=== PATIENT | male | born 1935 | race Caucasian/White ===

== ENCOUNTER 2023-08-17 17:58 | Inpatient (IN) | payer MEDICARE, SELFPAY ==
[2023-08-17] VITALS (37 sets, daily range): BP systolic 86–124; BP diastolic 47–63; PULSE 67–109; RESP 5–41; TEMP 36.4–36.7; O2SAT 93–98; BMI 22.2; BMI 24.1
--- NOTE | 2023-08-17 18:09 | ECG_ITS ---
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
--- NOTE | 2023-08-17 18:24 | ED.GENADUL1 ---
Documented by User: Erica Ryan MD 08/17/23 19:08 HPI - General Adult General Chief complaint: Recheck/Abnormal Lab/Rx Stated complaint: abnormal labs Time Seen by Provider: 08/17/23 18:09 Source: patient Mode of arrival: ambulance Limitations: other Limitations comment: patient very hard of hearing History of Present Illness HPI narrative: The patient presented to us from a longterm facility after his regular blood work-up shows a hemoglobin of 6, the patient himself is denying any complaints and is hard of hearing The patient have no acute distress or complaints Related Data Home Medications Medication Instructions Recorded Confirmed albuterol sulfate 90 mcg/actuation 1 inh inhalation DAILY PRN 08/17/23 08/17/23 aerosol inhaler shortness of breath or wheezing allopurinol 300 mg tablet 300 mg PO DAILY 08/17/23 08/17/23 ammonium lactate 12 % topical cream 1 applic topical DAILY PRN dry skin 08/17/23 08/17/23 apixaban 5 mg tablet (Eliquis) 5 mg PO BID 08/17/23 08/17/23 bisacodyl 10 mg rectal suppository 10 mg WI DAILY PRN constipation 08/17/23 08/17/23 calcium citrate 1,000 mg tablet 1,000 mg PO DAILY 08/17/23 08/17/23 digoxin 125 mcg (0.125 mg) tablet 0.125 mg PO DAILY 08/17/23 08/17/23 doxycycline hyclate 100 mg capsule 100 mg PO DAILY 08/17/23 08/17/23 ferrous sulfate 325 mg (65 mg 325 mg PO DAILY 08/17/23 08/17/23 iron) tablet (Feosol) furosemide 20 mg tablet 20 mg PO BID 08/17/23 08/17/23 guaifenesin 600 mg tablet, 600 mg PO BID PRN cough 08/17/23 08/17/23 extended release 12 hr metolazone 5 mg tablet 5 mg PO DAILY 08/17/23 08/17/23 metoprolol tartrate 50 mg tablet 50 mg PO BID 08/17/23 08/17/23 omeprazole 20 mg capsule,delayed 20 mg PO BID 08/17/23 08/17/23 release potassium gluconate 595 mg (99 mg) 595 mg PO DAILY 08/17/23 08/17/23 tablet tramadol 50 mg tablet 50 mg PO BID 08/17/23 08/17/23 Allergies Allergy/AdvReac Type Severity Reaction Status Date / Time venom-honey bee Allergy Severe Hives Verified 08/17/23 18:12 diazepam [From Valium] Allergy Unknown Verified 08/17/23 18:12 influenza virus vaccine qs Allergy Unknown Verified 08/17/23 18:12 [id number] (36 mos, up) [From Fluarix Quad] naproxen [From Naprosyn] Allergy Unknown Verified 08/17/23 18:12 Review of Systems ROS Status of ROS 10 or more systems reviewed and unremarkable except as noted in history and below [facility] Medical History (Updated 08/18/23 @ 00:08 by Heather June RN) Atrial fib/flutter, transient Cardiomegaly ?I51.7 - Cardiomegaly (ICD-10) CHF (congestive heart failure) ?I50.9 - Heart failure, unspecified (ICD-10) Hypertension ?I10 - Essential (primary) hypertension (ICD-10) Pacemaker ?Z95.0 - Presence of cardiac pacemaker (ICD-10) Exam Narrative Exam Narrative: Nurses notes and vital signs reviewed and patient is not hypoxic. General: Well-appearing and in no apparent distress. Hard of hearing Skin: Warm, dry, no pallor noted. No rash. Head: Normocephalic, atraumatic. Neck: Supple, non-tender. Eye: Pupils are equal, round and EOMI. No scleral icterus. Ears, Nose, Mouth, and Throat: TM are clear, bilateral nostril shows dry blood no bleeding at the posterior aspect of the pharynx no active bleeding, oral mucosa is moist, no posterior oropharynx erythema, uvula is mid-line Cardiovascular: Regular Rate and Rhythm without murmur, gallop or rub. Respiratory: No accessory muscle use or respiratory distress. Lungs are clear to auscultation, no wheezing, rales or rhonchi Chest Wall: no tenderness Back: No midline thoracic or lumbar vertebral tenderness. No CVA tenderness Musculoskeletal: normal ROM, no calf or popliteal tenderness bilateral chronic edema extending up to the knee with chronic skin changes and dry skin GI: Abdomen is soft, non-distended. Normal bowel sounds. No masses appreciated. Rectal exam showed that the patient have no hemorrhoids occult blood test was obtained no obvious bleeding No tenderness to palpation. No rebound, guarding, or rigidity noted. Neurological: A&O x4. No cranial nerve dysfunction observed. No truncal ataxia. Moves all extremities. Sensation intact. Psychiatric: Cooperative and interactive. Normal mood and affect. Constitutional Vital Signs, click to edit/add: Last Vital Signs Temp 98.0 F 08/17/23 23:16 Pulse 69 08/17/23 23:16 Resp 16 08/17/23 23:16 BP 112/59 08/17/23 23:16 Pulse Ox 93 L 08/17/23 23:29 O2 Del Method Room Air 08/17/23 23:29 Course Vital Signs Vital signs: Vital Signs Temperature 97.6 F 08/17/23 18:05 Pulse Rate 84 08/17/23 18:05 Respiratory Rate 24 08/17/23 18:05 Blood Pressure 104/57 08/17/23 18:05 Pulse Oximetry 98 08/17/23 18:05 Oxygen Delivery Method Room Air 08/17/23 18:05 Temperature 98.0 F 08/17/23 23:16 Pulse Rate 69 08/17/23 23:16 Respiratory Rate 16 08/17/23 23:16 Blood Pressure 112/59 08/17/23 23:16 Pulse Oximetry 93 L 08/17/23 23:29 Oxygen Delivery Method Room Air 08/17/23 23:29 Medical Decision Making [facility] Narrative Medical decision making narrative: The patient EKG showing A-fib with a heart rate of [address] elevation or any concern for acute coronary syndrome at the moment The patient is not a good historian and he is hard of hearing it was noted that he is supposed to be in anticoagulant because of his history of A-fib although there is no Eliquis on his medication The patient also had occult blood done and awaiting the result also the rest of the chemistry type and screen The patient hemoglobin is 6.5 here and the chemistry showing elevated BUN with the possibility of the patient having some upper GI bleed. The patient does take Eliquis at [facility] in [place] new list from [facility] pt code status is DNR CCA care transferred to Dr Buchanan Lab Data Labs: Lab Results 08/17/23 08/17/23 Range/Units 18:22 18:33 WBC 6.3 (4.0-11.0) 10^3/uL RBC 2.40 L (4.70-6.10) 10^6/uL Hgb 6.5 L* (14.0-18.0) g/dL Hct 22.8 L* (42.0-54.0) % MCV 95.0 H (80.0-94.0) fL MCH 27.1 (25.9-34.0) pg MCHC 28.5 L (29.9-35.2) g/dL RDW 17.2 H (11.0-15.0) % Plt Count 258 (150-450) 10^3/uL MPV 8.2 L (9.5-13.5) fL Neut % (Auto) 70.3 (43.0-75.0) % Lymph % (Auto) 17.4 L (20.5-60.0) % [place] % (Auto) 10.9 (1.7-12.0) % Eos % (Auto) 0.8 L (0.9-7.0) % Baso % (Auto) 0.3 (0.2-2.0) % Neut # (Auto) 4.4 (1.4-6.5) 10^3/uL Lymph # (Auto) 1.1 L (1.2-3.8) 10^3/uL [place] # (Auto) 0.7 (0.3-0.8) 10^3/uL Eos # (Auto) 0.1 (0.0-0.7) 10^3/uL Baso # (Auto) 0.0 (0.0-0.1) 10^3/uL Abs Immat Gran (auto) 0.02 (0.00-0.03) 10^3/uL Imm/Tot Granulo (auto) 0.3 (0.0-0.5) % PT 11.7 H (9.0-11.6) sec INR 1.11 Sodium 130 L (136-145) mmol/L Potassium 4.6 (3.5-5.1) mmol/L Chloride 91 L (98-107) mmol/L Carbon Dioxide 38.9 H (21.0-32.0) mmol/L Anion Gap 4.7 BUN 35.0 H (7.0-18.0) mg/dL Creatinine 0.90 (0.70-1.30) mg/dL Est GFR ( Amer) >60 (>=60) Est GFR (Non-Af Amer) >60 (>=60) BUN/Creatinine Ratio 38.9 Glucose 103 (74-106) mg/dL Calcium 8.6 (8.5-10.1) mg/dL Total Bilirubin 0.2 (0.2-1.0) mg/dL AST 19 (15-37) U/L ALT 18 (16-63) U/L Alkaline Phosphatase 91 (46-116) U/L Troponin I High Sens 16.8 (4.0-76.1) pg/mL Total Protein 6.3 L (6.4-8.2) g/dL Albumin 2.3 L (3.4-5.0) g/dL Globulin 4.0 g/dL Albumin/Globulin Ratio 0.6 Stool Occult Blood Positive A Digoxin 1.5 (0.9-2.0) ng/mL Blood Type B Negative Antibody Screen Negative Discharge Plan Discharge Chief Complaint: Recheck/Abnormal Lab/Rx Clinical Impression: Acute anemia, GI bleed, Constipation Patient Disposition: Admitted as Observation Documented by User: Alexx Buchanan MD 08/17/23 21:58 HPI - General Adult General Chief complaint: Recheck/Abnormal Lab/Rx Stated complaint: abnormal labs Time Seen by Provider: 08/17/23 18:09 Related Data Home Medications Medication Instructions Recorded Confirmed albuterol sulfate 90 mcg/actuation 1 inh inhalation DAILY PRN 08/17/23 08/17/23 aerosol inhaler shortness of breath or wheezing allopurinol 300 mg tablet 300 mg PO DAILY 08/17/23 08/17/23 ammonium lactate 12 % topical cream 1 applic topical DAILY PRN dry skin 08/17/23 08/17/23 apixaban 5 mg tablet (Eliquis) 5 mg PO BID 08/17/23 08/17/23 bisacodyl 10 mg rectal suppository 10 mg WI DAILY PRN constipation 08/17/23 08/17/23 calcium citrate 1,000 mg tablet 1,000 mg PO DAILY 08/17/23 08/17/23 digoxin 125 mcg (0.125 mg) tablet 0.125 mg PO DAILY 08/17/23 08/17/23 doxycycline hyclate 100 mg capsule 100 mg PO DAILY 08/17/23 08/17/23 ferrous sulfate 325 mg (65 mg 325 mg PO DAILY 08/17/23 08/17/23 iron) tablet (Feosol) furosemide 20 mg tablet 20 mg PO BID 08/17/23 08/17/23 guaifenesin 600 mg tablet, 600 mg PO BID PRN cough 08/17/23 08/17/23 extended release 12 hr metolazone 5 mg tablet 5 mg PO DAILY 08/17/23 08/17/23 metoprolol tartrate 50 mg tablet 50 mg PO BID 08/17/23 08/17/23 omeprazole 20 mg capsule,delayed 20 mg PO BID 08/17/23 08/17/23 release potassium gluconate 595 mg (99 mg) 595 mg PO DAILY 08/17/23 08/17/23 tablet tramadol 50 mg tablet 50 mg PO BID 08/17/23 08/17/23 Allergies Allergy/AdvReac Type Severity Reaction Status Date / Time venom-honey bee Allergy Severe Hives Verified 08/17/23 18:12 diazepam [From Valium] Allergy Unknown Verified 08/17/23 18:12 influenza virus vaccine qs Allergy Unknown Verified 08/17/23 18:12 [id number] (36 mos, up) [From Fluarix Quad] naproxen [From Naprosyn] Allergy Unknown Verified 08/17/23 18:12 [facility] Medical History (Updated 08/18/23 @ 00:08 by Heather June RN) Atrial fib/flutter, transient Cardiomegaly ?I51.7 - Cardiomegaly (ICD-10) CHF (congestive heart failure) ?I50.9 - Heart failure, unspecified (ICD-10) Hypertension ?I10 - Essential (primary) hypertension (ICD-10) Pacemaker ?Z95.0 - Presence of cardiac pacemaker (ICD-10) Exam Constitutional Vital Signs, click to edit/add: Last Vital Signs Temp 98.0 F 08/17/23 23:16 Pulse 69 08/17/23 23:16 Resp 16 08/17/23 23:16 BP 112/59 08/17/23 23:16 Pulse Ox 93 L 08/17/23 23:29 O2 Del Method Room Air 08/17/23 23:29 Course Vital Signs Vital signs: Vital Signs Temperature 97.6 F 08/17/23 18:05 Pulse Rate 84 08/17/23 18:05 Respiratory Rate 24 08/17/23 18:05 Blood Pressure 104/57 08/17/23 18:05 Pulse Oximetry 98 08/17/23 18:05 Oxygen Delivery Method Room Air 08/17/23 18:05 Temperature 98.0 F 08/17/23 23:16 Pulse Rate 69 08/17/23 23:16 Respiratory Rate 16 08/17/23 23:16 Blood Pressure 112/59 08/17/23 23:16 Pulse Oximetry 93 L 08/17/23 23:29 Oxygen Delivery Method Room Air 08/17/23 23:29 Medical Decision Making MDM Narrative Medical decision making narrative: The patient EKG showing A-fib with a heart rate of [address] elevation or any concern for acute coronary syndrome at the moment The patient is not a good historian and he is hard of hearing it was noted that he is supposed to be in anticoagulant because of his history of A-fib although there is no Eliquis on his medication The patient also had occult blood done and awaiting the result also the rest of the chemistry type and screen The patient hemoglobin is 6.5 here and the chemistry showing elevated BUN with the possibility of the patient having some upper GI bleed. The patient does take Eliquis at [facility] in [facility] from [facility] pt code status is DNR CCA care transferred to Dr Buchanan care transferred at change of shift. Discussed with butcher scullion surgeon Dr Lopez who is agreeable to patient admission by Hospitalist service. Discussed with Dr Sister gordon. Because patient was complaining of pain he requested CT abdomen. CT returned with findings of constipation. Patient admitted to hospitalist service Lab Data Labs: Lab Results 08/17/23 08/17/23 Range/Units 18:22 18:33 WBC 6.3 (4.0-11.0) 10^3/uL RBC 2.40 L (4.70-6.10) 10^6/uL Hgb 6.5 L* (14.0-18.0) g/dL Hct 22.8 L* (42.0-54.0) % MCV 95.0 H (80.0-94.0) fL MCH 27.1 (25.9-34.0) pg MCHC 28.5 L (29.9-35.2) g/dL RDW 17.2 H (11.0-15.0) % Plt Count 258 (150-450) 10^3/uL MPV 8.2 L (9.5-13.5) fL Neut % (Auto) 70.3 (43.0-75.0) % Lymph % (Auto) 17.4 L (20.5-60.0) % [place] % (Auto) 10.9 (1.7-12.0) % Eos % (Auto) 0.8 L (0.9-7.0) % Baso % (Auto) 0.3 (0.2-2.0) % Neut # (Auto) 4.4 (1.4-6.5) 10^3/uL Lymph # (Auto) 1.1 L (1.2-3.8) 10^3/uL [place] # (Auto) 0.7 (0.3-0.8) 10^3/uL Eos # (Auto) 0.1 (0.0-0.7) 10^3/uL Baso # (Auto) 0.0 (0.0-0.1) 10^3/uL Abs Immat Gran (auto) 0.02 (0.00-0.03) 10^3/uL Imm/Tot Granulo (auto) 0.3 (0.0-0.5) % PT 11.7 H (9.0-11.6) sec INR 1.11 Sodium 130 L (136-145) mmol/L Potassium 4.6 (3.5-5.1) mmol/L Chloride 91 L (98-107) mmol/L Carbon Dioxide 38.9 H (21.0-32.0) mmol/L Anion Gap 4.7 BUN 35.0 H (7.0-18.0) mg/dL Creatinine 0.90 (0.70-1.30) mg/dL Est GFR ( Amer) >60 (>=60) Est GFR (Non-Af Amer) >60 (>=60) BUN/Creatinine Ratio 38.9 Glucose 103 (74-106) mg/dL Calcium 8.6 (8.5-10.1) mg/dL Total Bilirubin 0.2 (0.2-1.0) mg/dL AST 19 (15-37) U/L ALT 18 (16-63) U/L Alkaline Phosphatase 91 (46-116) U/L Troponin I High Sens 16.8 (4.0-76.1) pg/mL Total Protein 6.3 L (6.4-8.2) g/dL Albumin 2.3 L (3.4-5.0) g/dL Globulin 4.0 g/dL Albumin/Globulin Ratio 0.6 Stool Occult Blood Positive A Digoxin 1.5 (0.9-2.0) ng/mL Blood Type B Negative Antibody Screen Negative Discharge Plan Discharge Chief Complaint: Recheck/Abnormal Lab/Rx Clinical Impression: Acute anemia, GI bleed, Constipation Patient Disposition: Admitted as Observation
[2023-08-17 18:31] LABS: Basophils Percent Auto 0.3 % (0.2-2.0); Eosinophils Absolute Auto 0.1 10^3/uL (0.0-0.7); Eosinophils Percent Auto 0.8 % (0.9-7.0); Immature Granulocytes Abs Auto 0.02 10^3/uL (0.00-0.03); Immature Granulocytes Pct Auto 0.3 % (0.0-0.5); Lymphocytes Absolute Auto 1.1 10^3/uL (1.2-3.8); Lymphocytes Percent Auto 17.4 % (20.5-60.0); Mean Corpuscular HGB Conc 28.5 g/dL (29.9-35.2); Mean Corpuscular Hemoglobin 27.1 pg (25.9-34.0); Mean Platelet Volume 8.2 fL (9.5-13.5); Monocytes Absolute Auto 0.7 10^3/uL (0.3-0.8); Monocytes Percent Auto 10.9 % (1.7-12.0); Neutrophils Absolute Auto 4.4 10^3/uL (1.4-6.5); Neutrophils Percent Auto 70.3 % (43.0-75.0); Platelet Count 258 10^3/uL (150-450); Red Cell Distribution Width 17.2 % (11.0-15.0); White Blood Count 6.3 10^3/uL (4.0-11.0)
[2023-08-17 18:34] LABS: Hematocrit 22.8 % (42.0-54.0); Hemoglobin 6.5 g/dL (14.0-18.0)
[2023-08-17 18:44] LABS: INR 1.11; Prothrombin Time 11.7 sec (9.0-11.6)
[2023-08-17 18:48] LABS: Occult Blood Positive
[2023-08-17 18:48] LABS: Alanine Aminotransferase 18 U/L (16-63); Albumin Globulin Ratio 0.6; Albumin Level 2.3 g/dL (3.4-5.0); Alkaline Phosphatase 91 U/L (46-116); Anion Gap 4.7; Aspartate Amino Transferase 19 U/L (15-37); BUN Creatinine Ratio 38.9; Bilirubin Total 0.2 mg/dL (0.2-1.0); Calcium 8.6 mg/dL (8.5-10.1); Carbon Dioxide 38.9 mmol/L (21.0-32.0); Chloride 91 mmol/L (98-107); Estimated GFR (African America >60 (>=60); Estimated GFR (Non-African Ame >60 (>=60); Glucose 103 mg/dL (74-106); Potassium 4.6 mmol/L (3.5-5.1); Sodium 130 mmol/L (136-145); Total Protein 6.3 g/dL (6.4-8.2)
[2023-08-17 18:50] LABS: Troponin I High Sensitivity 16.8 pg/mL (4.0-76.1)
--- NOTE | 2023-08-17 19:02 | PC.NURSE ---
pt sent over from the [facility]. patient takes eliquis and digoxin for hx of a-fib. patient had labs done today and hgb and hct were low, and was sent over for blood transfusion. pt is hard of hearing but seems to hear better when speaking into patients left ear. pt denies any current complaints at this time. patient is pale, and occult collected by dr. luo with this rn at bedside. patient did have a small bowel movement on arrival and cleaned up and new depends applied. pt given warm blankets on arrival.
[2023-08-17 19:46] LABS: Digoxin 1.5 ng/mL (0.9-2.0)
--- NOTE | 2023-08-17 20:33 | CT_ITS ---
The [address] [address] Patient Name: JEANETTE ROWE MRN: [id number] date: 1935 Sex: M Assigned Patient Location: ER Current Patient Location: ER Accession/Order Number: [id number] Exam Date: 08/17/2023 20:55 Report Date: 08/17/2023 21:43 At the request of: CARI HEALY Procedure: CT abdomen pelvis w con CT ABDOMEN/PELVIS WITH IV CONTRAST. INDICATION: abdominal pain/GI bleed. COMPARISON: There are no other studies available for comparison. TECHNIQUE: Contiguous axial images were obtained from the lung bases to the pelvic floor following the intravenous administration of contrast. Coronal and sagittal reformations are provided. FINDINGS: LOWER LUNGS: There are subpleural opacities in the lower lobes likely segmental atelectasis. Cardiomegaly. LIVER/BILIARY TREE: No mass. No intrahepatic ductal dilatation. GALLBLADDER: Status post cholecystectomy.. CBD: Normal CBD. SPLEEN: Normal in size. PANCREAS: No acute findings. No peripancreatic fluid or inflammation. No pancreatic duct dilatation. No discrete mass. ADRENALS: Normal. KIDNEYS: No hydronephrosis. No radiopaque calculus. STOMACH AND BOWEL: Decompressed stomach. No dilated bowel loops. No bowel wall thickening. Colonic diverticulosis without acute diverticulitis. Moderate rectal fecal load. APPENDIX: No acute abnormality PERITONEAL CAVITY: No fluid. No fat stranding. ABDOMINAL WALL: No subcutaneous stranding. No subcutaneous fluid collection. LYMPH NODES: No mesenteric or retroperitoneal lymphadenopathy by CT criteria. ABDOMINAL AORTA: No aneurysm. 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 MUSCULOSKELETAL: No acute osseous abnormality. CT/CT abdomen pelvis w con IMPRESSION: No acute abnormality in the abdomen or pelvis. Colonic diverticulosis without acute diverticulitis. Moderate rectal fecal load. Electronically authenticated by: MARIA VICTORIA GODINEZ Date: 08/17/2023 21:43
[2023-08-17] MEDS: ONDANSETRON PF 4 MG/2 ML VIAL IV (21:19)
[2023-08-17] MEDS: MORPHINE SULFATE 2 MG/ML SYRINGE IV (21:19)
[2023-08-17] MEDS: 0.9 % SODIUM CHLORIDE 1,000 ML 1000 ML IV ×2 (22:00→23:14)
--- NOTE | 2023-08-17 23:48 | PC.NURSE ---
when assessing the patient, his feet and legs up to his hips are a +4 pitting edema. +3 pitting edema up at his flank/side bilaterally. Lung sounds are clear, but diminished in anterior and posterior bases. NS was slowed down to 50mL/hr per nursing judgement. RN will notify Dr. Pereira of this change during tele-hospitalist admission assessment.
[2023-08-18] VITALS (179 sets, daily range): BP systolic 70–133; BP diastolic 34–86; PULSE 68–123; RESP 14–94; TEMP 36.3–37.1; O2SAT 88–100
--- NOTE | 2023-08-18 00:27 | W.PM.TELEPN ---
Progress Note: Subjective Subjective Interval history: 88 yo WM sent over from LT for evaluation of abnormal results of the blood work - low H&H. Patient is hard hearing and has underlying Dementia and unable to provide reliable information. Apparently patient has been on Eliquis for stroke prevention with CAFIb. In ED - Hb confirmed. Stool + for occult blood. CT Abdomen/Pelvis - unremarkable. Exam Narrative Exam Narrative: Physical Exam: Not in distress, cooperative, Head - atraumatic, eyes - pupils equal, round, reactive to light, extra ocular movement intact, MMM Neck - supple, thyroid not enlarged, LN not palpated Lungs - clear to auscultation, no dullness on percussion CVS - heart sounds S1, S2, no additional murmurs gallop, IRIRRR Gastrointestinal?abdomen is soft, non-tender, non-distended, no organomegaly, positive bowel sounds Extremities no clubbing, cyanosis, +++r edema Neurological?cranial nerve II?XII grossly intact, no meningeal signs, no cerebellar signs, no sensory deficit Musculoskeletal - 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, no effusions, ROM preserved Dermatological - the skin dry, warm, no rashes Psychiatric?patient has flat affect Constitutional Vital Signs, click to edit/add: Last Vital Signs Temp 98.0 F 08/17/23 23:16 Pulse 69 08/17/23 23:16 Resp 16 08/17/23 23:16 BP 112/59 08/17/23 23:16 Pulse Ox 93 L 08/17/23 23:29 O2 Del Method Room Air 08/17/23 23:29 Progress Note: Objective Labs Labs: Short CBC 08/17/23 Range/Units 18:22 WBC 6.3 (4.0-11.0) 10^3/uL Hgb 6.5 L* (14.0-18.0) g/dL Hct 22.8 L* (42.0-54.0) % Plt Count 258 (150-450) 10^3/uL BMP 08/17/23 18:22 Sodium 130 L Potassium 4.6 Chloride 91 L Carbon Dioxide 38.9 H BUN 35.0 H Creatinine 0.90 Glucose 103 Calcium 8.6 Liver Function 08/17/23 Range/Units 18:22 Total Bilirubin 0.2 (0.2-1.0) mg/dL AST 19 (15-37) U/L ALT 18 (16-63) U/L Alkaline Phosphatase 91 (46-116) U/L Albumin 2.3 L (3.4-5.0) g/dL Progress Note: A&P Assessment and Plan (1) Acute anemia: Assessment and Plan: 2/2 GI losses - going to transfuse 2 PRBCs (2) GI bleed: Assessment and Plan: hold off Eliquis PPIs IV ordered F/u with Dr. Lopez in AM for EGD/Colonoscopy (3) Atrial fib/flutter, transient: Assessment and Plan: rate/rhythm controlled with Dig. - going to check levels (4) CHF (congestive heart failure): Assessment and Plan: +++ B/L LE piting edema noted. Continue with current diuretics. Going to order ECHO. Plan END: As the provider for the telehealth service, I attest that I introduced myself to the patient, provided my credentials, disclosed by location and determined that based on a review of the patient's chart and discussion with members of the patient's treatment team, telemedicine via real-time, 2 way, and interactive audio and video platform is an appropriate and effective means of providing the service. ?The patient and I mutually agree this visit is appropriate for telemedicine. ?The virtual encounter was taken place from? [place], [place]. ?The encounter took approximately 35 minutes. ?The nurse was present during the entire time and I was able to move the stethoscope in appropriate directions. ?The patient was evaluated at the Hospital ? Portions of this note may be dictated using [employer] voice recognition software. Variances in spelling and vocabulary are possible and unintentional. Not all errors may be caught and/or corrected. Please notify the author if any discrepancies are noted and/or if the meaning of any statement is unclear.? ? Patient verbally consented for treatment via video visit with patient currently located at the [facility] and provider located in [place]. Telemedicine Attestation Telemedicine Attestation I conducted this encounter from [[place]] via secure live, [id number] video conference with the patient, located at [facility] with [Anemia]. Prior to the interview, the risks and benefits of telemedicine were discussed with the patient and verbal consent was obtained.
--- NOTE | 2023-08-18 00:33 | CA_ITS ---
Patient: JEANETTE ROWE Exam Date: 08/18/2023 : 1935 Gender:M Ordering : SIMONA Mendez SISTER Admission #: [id number] Family : SHAIKH Mick RETANA . Order #: [id number] CLICK HERE TO VIEW EXAM ECHOCARDIOGRAM REPORT PROCEDURE: CA ECHO DOPPLER COMPLETE INDICATIONS: Congestive heart failure, pacemaker, hypertension COMPARISON: None. DESCRIPTION: COMPLETE ECHOCARDIOGRAM Real-time transthoracic echocardiography with 2D, M-mode, spectral and color flow Doppler performed. QUALITY: Technical quality was good. LEFT VENTRICLE: Normal chamber size. Normal left ventricular wall thickness. LV EF: Global left ventricular systolic function is difficult to assess due to rhythm but appears preserved; visually estimated ejection fraction is 50-55%. Unable to comment on regional wall motion abnormalities. DIASTOLIC: Not adequately assessed due to heart rhythm. ATRIAL SEPTUM: Inadequately seen. LEFT ATRIUM: Severe dilatation. RIGHT ATRIUM: Severe dilatation. RIGHT VENTRICLE: Severe dilatation. Systolic function appears reduced. Pacer wire present. TRICUSPID VALVE: Normal mobility and thickness. Moderate regurgitation. Doppler studies reveal moderately (45-60) elevated right sided pressures. RVSP 45 mmHg MITRAL VALVE: Normal mobility and thickness. No evidence of mitral valve stenosis. Mild mitral annular calcification. Moderate mitral regurgitation. AORTIC VALVE: Normal trileaflet appearance. Moderately calcified aortic valve. No significant aortic valve stenosis. No aortic regurgitation. AORTIC ROOT: Normal diameter and appearance. PULMONIC VALVE: Not well visualized. No stenosis. No regurgitation. PERICARDIUM: No evidence of pericardial effusion. IVC: Not well visualized. CONCLUSION: 1. Global left ventricular systolic function is difficult to assess but appears preserved; visually estimated ejection fraction is 50 to 55% 2. Severe biatrial enlargement 3. Severely dilated right ventricle with reduced systolic function 4. Moderate tricuspid regurgitation 5. Moderately elevated right ventricular systolic pressure; RVSP 45 mmHg 6. Moderate mitral regurgitation Adult Echocardiography Procedure Report Left Ventricle LVEDD (3.7 - 5.6 cm): 4.35 cm LVESD (2.2 - 4.0 cm): 3.33 cm LVIVS thickness (0.6 - 1.2 cm): 0.99 cm LVPW thickness (0.5 - 1.0 cm): 0.90 cm e': 0.14 m/s E - e': 9.35 LVOT Max Gradient: 2.06 mm[Hg] LVOT Area (cm2): 0.72 m/s Peak Velocity (LVOT): 0.72 m/s LVOT Diameter 1.65 cm Left Atrium LA Volume Index (2D A2C): 126.45 ml/m2 Left Atrium Systolic Dimension: 6.44 cm Mitral Valve MV E to A Ratio: 3.84 Mitral Valve A-Wave Peak Velocity: 0.34 m/s Mitral Valve E-Wave Peak Velocity: 1.32 m/s Right Ventricle Aorta AO Root Diam: 3.42 cm Aortic Valve AoV Area (Peak Simone): 1.06 cm2, 1.19 cm2 Peak Velocity(Antegrade Flow): 1.29 m/s, 1.50 m/s, 1.55 m/s Peak Gradient(Antegrade Flow): 6.65 mm[Hg], 8.95 mm[Hg], 9.55 mm[Hg] Mean Velocity(Antegrade Flow): 0.91 m/s, 1.16 m/s, 1.07 m/s Mean Gradient(Antegrade Flow): 3.76 mm[Hg], 5.75 mm[Hg], 5.09 mm[Hg] Velocity Time Integral: 20.61 cm, 21.25 cm, 23.71 cm Tricuspid Valve Peak Velocity (Regurgitant Flow): 2.65 m/s, 2.76 m/s, 2.76 m/s, 2.66 m/s Pulmonic Valve Peak Velocity: 1.00 m/s Peak Gradient: 3.50 mm[Hg], 4.60 mm[Hg] Right Atrium Right Atrium Systolic Pressure: 124.59 ml, 124.59 ml Dictated by: Ruben Gtz M.D. on 08/18/2023 at 12:38 Approved by: Ruben Gtz M.D. on 08/18/2023 at 12:44
[2023-08-18] MEDS: PANTOPRAZOLE SODIUM 40 MG VIAL IV ×2 (01:30→11:48)
--- NOTE | 2023-08-18 04:16 | PC.NURSE ---
0416: First unit of blood is running. patient continues to have plus 4 pitting edema throughout lower extremities bilaterally and +3 pitting edema throughout his hips and sides. Patient BP was 84/54, Dr. Pereira made aware and said to continue with the blood transfusion, but do not give the lasix in between the first and second unit. Dr. Pereira also has no diet order in because he want to wait for surgeon to see him No surgeon has been consulted at this time
--- NOTE | 2023-08-18 06:27 | PC.NURSE ---
Patient getting second unit of blood, BP was 75/51. Dr. Pereira was notified of BP and the patient was transferred to the ICU. Bedside report was given to Dorota HUANG
[2023-08-18] MEDS: NOREPINEPHRINE BITARTRATE 4 MG in DEXTROSE 5 % IN WATER 250 ML 7.5 MG IV (06:32)
--- NOTE | 2023-08-18 06:33 | PC.NURSE ---
632 Emergency Contact, Mercy Ugarte, was called to notify about change in level of care; however there was no answer.
--- NOTE | 2023-08-18 06:58 | PC.NURSE ---
[id number] Mercy Shanel was called and notified of change in care and transfer to the ICU. He was given the extension to the ICU if he had any questions.
[2023-08-18] MEDS: ALBUMIN HUMAN 25 GM/100 ML PREMIX IV (09:11)
[2023-08-18 09:30] LABS: Basophils Percent Auto 0.3 % (0.2-2.0); Eosinophils Percent Auto 0.1 % (0.9-7.0); Hematocrit 27.4 % (42.0-54.0); Hemoglobin 8.7 g/dL (14.0-18.0); Immature Granulocytes Abs Auto 0.03 10^3/uL (0.00-0.03); Immature Granulocytes Pct Auto 0.4 % (0.0-0.5); Lymphocytes Absolute Auto 0.9 10^3/uL (1.2-3.8); Mean Corpuscular HGB Conc 31.8 g/dL (29.9-35.2); Mean Corpuscular Hemoglobin 28.3 pg (25.9-34.0); Mean Corpuscular Volume 89.3 fL (80.0-94.0); Mean Platelet Volume 8.6 fL (9.5-13.5); Monocytes Absolute Auto 0.9 10^3/uL (0.3-0.8); Monocytes Percent Auto 10.8 % (1.7-12.0); Neutrophils Absolute Auto 6.1 10^3/uL (1.4-6.5); Neutrophils Percent Auto 77.4 % (43.0-75.0); Platelet Count 264 10^3/uL (150-450); Red Blood Count 3.07 10^6/uL (4.70-6.10); White Blood Count 7.9 10^3/uL (4.0-11.0)
[2023-08-18 09:49] LABS: Partial Thromboplastin Time 39.5 sec (22.3-36.2); Prothrombin Time 11.6 sec (9.0-11.6)
[2023-08-18 09:58] LABS: Alanine Aminotransferase 17 U/L (16-63); Albumin Globulin Ratio 0.6; Albumin Level 2.1 g/dL (3.4-5.0); Alkaline Phosphatase 90 U/L (46-116); Anion Gap 7.8; Aspartate Amino Transferase 24 U/L (15-37); BUN Creatinine Ratio 48.4; Bilirubin Total 0.8 mg/dL (0.2-1.0); Carbon Dioxide 35.3 mmol/L (21.0-32.0); Chloride 96 mmol/L (98-107); Estimated GFR (African America >60 (>=60); Estimated GFR (Non-African Ame >60 (>=60); Globulin 3.6 g/dL; Glucose 117 mg/dL (74-106); Potassium 4.1 mmol/L (3.5-5.1); Sodium 135 mmol/L (136-145); Total Protein 5.7 g/dL (6.4-8.2)
[2023-08-18 10:38] LABS: Digoxin 1.6 ng/mL (0.9-2.0)
--- NOTE | 2023-08-18 10:56 | P.HP_ITS ---
H&P: HPI History of Present Illness Chief complaint: Anemia Narrative: 88 y/o male sent in from [facility] with abnormal labs. History of afib and on Eliquis. Routine labs showed hgb 6.0 and sent to ER. Patient very hard of hearing and difficult to obtain history. Reports mild abdominal discomfort but denies diarrhea or emesis. In ER occult blood positive. CT negative for acute findings and hgb 6.5. Admitted for treatment. Gave 2 units PRBC. Started IV protonix and held Eliquis. Consulted general surgery. Over night developed hypotension requiring levophed and transferred to ICU. Review of Systems ROS Constitutional Denies: fever or chills Respiratory Denies: shortness of breath or cough Gastrointestinal Reports: abdominal pain and diarrhea; Denies: nausea or vomiting Genitourinary Denies: painful urination [facility] Medical History (Updated 08/18/23 @ 11:00 by Bridger Jennings MD) Acute anemia ?D64.9 - Anemia, unspecified (ICD-10) Atrial fib/flutter, transient Cardiomegaly ?I51.7 - Cardiomegaly (ICD-10) CHF (congestive heart failure) ?I50.9 - Heart failure, unspecified (ICD-10) Constipation ?K59.00 - Constipation, unspecified (ICD-10) Pacemaker ?Z95.0 - Presence of cardiac pacemaker (ICD-10) Meds Home Medications and Allergies Home Medications Medication Instructions Recorded Confirmed Type albuterol sulfate 90 mcg/actuation 1 inh inhalation DAILY PRN 08/17/23 08/17/23 History aerosol inhaler shortness of breath or wheezing allopurinol 300 mg tablet 300 mg PO DAILY 08/17/23 08/17/23 History ammonium lactate 12 % topical cream 1 applic topical DAILY PRN dry skin 08/17/23 08/17/23 History apixaban 5 mg tablet (Eliquis) 5 mg PO BID 08/17/23 08/17/23 History bisacodyl 10 mg rectal suppository 10 mg GA DAILY PRN constipation 08/17/23 08/17/23 History calcium citrate 1,000 mg tablet 1,000 mg PO DAILY 08/17/23 08/17/23 History digoxin 125 mcg (0.125 mg) tablet 0.125 mg PO DAILY 08/17/23 08/17/23 History doxycycline hyclate 100 mg capsule 100 mg PO DAILY 08/17/23 08/17/23 History ferrous sulfate 325 mg (65 mg 325 mg PO DAILY 08/17/23 08/17/23 History iron) tablet (Feosol) furosemide 20 mg tablet 20 mg PO BID 08/17/23 08/17/23 History guaifenesin 600 mg tablet, 600 mg PO BID PRN cough 08/17/23 08/17/23 History extended release 12 hr metolazone 5 mg tablet 5 mg PO DAILY 08/17/23 08/17/23 History metoprolol tartrate 50 mg tablet 50 mg PO BID 08/17/23 08/17/23 History omeprazole 20 mg capsule,delayed 20 mg PO BID 08/17/23 08/17/23 History release potassium gluconate 595 mg (99 mg) 595 mg PO DAILY 08/17/23 08/17/23 History tablet tramadol 50 mg tablet 50 mg PO BID 08/17/23 08/17/23 History Allergies Allergy/AdvReac Type Severity Reaction Status Date / Time venom-honey bee Allergy Severe Hives Verified 08/17/23 18:12 diazepam [From Valium] Allergy Unknown Verified 08/17/23 18:12 influenza virus vaccine qs Allergy Unknown Verified 08/17/23 18:12 [id number] (36 mos, up) [From Fluarix Quad] naproxen [From Naprosyn] Allergy Unknown Verified 08/17/23 18:12 Exam Constitutional Vital Signs, click to edit/add: Last Vital Signs Temp 97.4 F L 08/18/23 07:39 Pulse 85 08/18/23 09:00 Resp 37 H 08/18/23 09:00 BP 95/62 08/18/23 09:00 Pulse Ox 97 08/18/23 08:50 O2 Del Method Room Air 08/18/23 07:39 Documenting provider has reviewed patient's vital signs: yes Common normals: oriented x3 and alert HENMT Common normals: normocephalic Eye Common normals: PERRL and EOMs intact bilaterally Respiratory Common normals: normal respiratory effort and clear to auscultation bilaterally Cardio Common normals: no gallops, no murmurs and no rub Rhythm: abnormal rhythm irregularly irregular GI Common normals: Normal to inspection, nondistended, normoactive bowel sounds present and non-tender Extremity Common normals: no pedal edema Results Labs Labs: Short CBC 08/17/23 08/18/23 Range/Units 18:22 09:15 WBC 6.3 7.9 (4.0-11.0) 10^3/uL Hgb 6.5 L* 8.7 L (14.0-18.0) g/dL Hct 22.8 L* 27.4 L (42.0-54.0) % Plt Count 258 264 (150-450) 10^3/uL BMP 08/17/23 08/18/23 18:22 09:15 Sodium 130 L 135 L Potassium 4.6 4.1 Chloride 91 L 96 L Carbon Dioxide 38.9 H 35.3 H BUN 35.0 H 31.0 H Creatinine 0.90 0.64 L Glucose 103 117 H Calcium 8.6 8.0 L Liver Function 08/17/23 08/18/23 Range/Units 18:22 09:15 Total Bilirubin 0.2 0.8 (0.2-1.0) mg/dL AST 19 24 (15-37) U/L ALT 18 17 (16-63) U/L Alkaline Phosphatase 91 90 (46-116) U/L Albumin 2.3 L 2.1 L (3.4-5.0) g/dL Imaging CT scan - abdomen: Attestation: I have reviewed the pertinent imaging results. Assessment and Plan Assessment and Plan (1) Acute anemia: (2) GI bleed: (3) Atrial fib/flutter, transient: (4) CHF (congestive heart failure): (5) Hypovolemic shock: (6) Anemia due to GI blood loss: (7) Chronic atrial fibrillation: (8) Chronic HFrEF (heart failure with reduced ejection fraction): (9) Hypertension: (10) Dementia: Plan Hgb improved at 8.7 after 2 units PRBC. Developed severe hypotension related to volume loss and on levophed. Wean as tolerated. Surgery consulted and plan on EGD later this afternoon. Continue protonix and iron. Will need to closely monitor fluid status due to CHF and check echo. Will need 2-3 days in the hospital.
--- NOTE | 2023-08-18 11:27 | CM.NOTE ---
Rounds made with Dr. Jennings, pt continues on Levophed. Surgeon to see pt today for consult. Pt is prison at [facility].
--- NOTE | 2023-08-18 12:18 | CM.NOTE ---
Spoke with pt's son via telephone to discuss Important Message From Medicare, son verbalizes understanding and ok to give consent to sign. Original put in pt's room and copy on pt's chart.
--- NOTE | 2023-08-18 14:00 | P.GSPRC_ITS ---
Date of procedure: 08/18/23 Indications for Procedure: Patient is an 88-year-old white male, who was seen at the request of the attending hospitalist following admission to [facility] last evening for management of chronic blood loss anemia. Consultation was requested for the purpose of performing a diagnostic EGD. This patient has a significant cardiac history that includes cardiomegaly, congestive heart failure, and atrial fibrillation. He has an indwelling pacemaker and is systemically anticoagulated on Eliquis. Clinically, the patient resides at an [facility] care facility. Apparently, routine lab work was drawn 08/17/2023, at the [facility], that returned showing the patient to be profoundly anemic with a hemoglobin of 6.5 g/dL and a hematocrit of 22.8%. Platelet count is normal. The patient is not neutropenic. Based on these values, the patient was sent to the emergency department at [facility]. At presentation, the patient was found to be clinically asymptomatic despite the low hemoglobin value, suggesting that his anemia is a chronic condition. The patient has not manifested any outward signs of bleeding. There are no reports of hematemesis, melena, or gross hematochezia. There are no reports of hematuria. Digital rectal examination in the emergency department was positive for fecal occult blood. The patient was admitted and transfused 2 units of packed red blood cells. This resulted in nondenominational of the circulating hemoglobin to a value of 8.7 g/dL and a hematocrit of 27.4%. Overnight, the patient developed hypotension and was placed on Levophed. He is receiving both supplemental iron and is on a proton pump inhibitor. The attending hospitalist has requested that a diagnostic EGD be undertaken in order to evaluate for any potential occult source of upper gastrointestinal blood loss. It is likely that this patient will require a diagnostic colonos copy as well, but since the patient cannot be bowel prepped at this time, colonoscopy will need to be deferred. The indications, risks, benefits, and potential complications of an urgent diagnostic EGD are reviewed in detail with both the patient and his son Rosas Ugarte, who holds power of crusher and blender operator over this patient's medical affairs. Both parties have indicated their understanding of the proposed diagnostic procedure and the power of crusher and blender operator has provided his informed written consent on behalf of his father, to proceed with a diagnostic EGD. This patient is now taken to the procedural suite for a diagnostic EGD. 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 08/18/2023, the patient was taken to the endoscopy suite where he was positioned supine in his hospital bed, with the head of the bed raised 45 degrees. Intravenous sedation anesthesia was administered by Dr. Adal Thomson, under monitored anesthesia care. This patient is classified as an ASA class IV E anesthetic risk. Once adequately sedated, an appropriate timeout was performed in order to confirm the correct procedure to be conducted. The endoscopic procedure commenced at 1235 hrs. A bite-block was placed. An Olympus GIF?HQ 190 vi deogastroscope was introduced into the oral cavity and passed across the upper esophageal sphincter. The gastroscope was maneuvered distally through the upper gastrointestinal tract, to the second portion of the duodenum. Systematic examination of the upper gastrointestinal tract was performed on withdrawal of the scope. The endoscopic evaluation was limited due to technical difficulties with i nsufflation through the gastroscope, however no stigmata of old or recent hemorrhage were visualized within the upper gastrointestinal tract. The duodenal sweep showed no mucosal abnormality. There were no obvious polyps or mucosal mass lesions. There was no evidence of peptic ulceration within the pyloric channel, duodenal bulb, or second portion of the duodenum. No old or fresh blood was identified. There was no coffee-ground material. Within the gastric lumen, the mucosa exhibited no obvious pathologic abnormality. No old or fresh blood was seen within the stomach. Poor insufflation limited evaluation for gastric varices and/or Dieulafoy's vascular malformation. There were no polyps or gastric mass lesions. There was no evidence of peptic ulceration. The gastroscope was withdrawn into the distal esophagus. There was no evidence of erosive esophagitis. A Jovana-Ovalles tear was not seen. There were no esophageal varices. An mucosal mass lesion was not identified. No old or fresh blood was seen within the esophageal lumen. At this point in the procedure, the patient manifest a 5 beat run of ventricular tachycardia, from which he spontaneously reverted. The gastroscope was withdrawn and the procedure rapidly terminated at 1254 hrs. Given the patient's ASA 4E status, patient tolerated diagnostic EGD better than expected. There were no significant procedurally related complications. Sedation was lightened and the patient was returned to the intensive care unit in stable condition. Nacho Lopez MD Purse Seining Hand: None Estimated blood loss (mL): 0 Specimens: None Complications: No Condition: stable Disposition: ICU
[2023-08-18 14:16] LABS: Magnesium 2.2 mg/dL (1.8-2.4)
[2023-08-18] MEDS: NOREPINEPHRINE BITARTRATE 4 MG in DEXTROSE 5 % IN WATER 250 ML 37.5 MG IV (14:22)
--- NOTE | 2023-08-18 16:07 | SWNOTE1 ---
SW left packet with nursing in case pt is able to be discharged back to [facility] over weekend. He will return [facility].
--- NOTE | 2023-08-18 16:08 | SWNOTE1 ---
SW left packet for Home health and for long term, unsure over weekend if pt will be dc home with HH or if precert will get approved or denied for skilled to [facility].
--- NOTE | 2023-08-18 16:10 | SWNOTE1 ---
Disregard last note in regards to HH versus skilled. Pt will return half-way at [facility] at discharge.
[2023-08-18 16:27] LABS: Basophils Percent Auto 0.2 % (0.2-2.0); Hematocrit 28.4 % (42.0-54.0); Hemoglobin 8.7 g/dL (14.0-18.0); Immature Granulocytes Abs Auto 0.05 10^3/uL (0.00-0.03); Immature Granulocytes Pct Auto 0.6 % (0.0-0.5); Lymphocytes Absolute Auto 0.8 10^3/uL (1.2-3.8); Lymphocytes Percent Auto 9.7 % (20.5-60.0); Mean Corpuscular HGB Conc 30.6 g/dL (29.9-35.2); Mean Corpuscular Hemoglobin 28.1 pg (25.9-34.0); Mean Corpuscular Volume 91.6 fL (80.0-94.0); Mean Platelet Volume 8.8 fL (9.5-13.5); Monocytes Percent Auto 11.8 % (1.7-12.0); Neutrophils Absolute Auto 6.7 10^3/uL (1.4-6.5); Neutrophils Percent Auto 77.7 % (43.0-75.0); Platelet Count 264 10^3/uL (150-450); Red Cell Distribution Width 17.4 % (11.0-15.0); White Blood Count 8.6 10^3/uL (4.0-11.0)
--- NOTE | 2023-08-18 19:40 | RESP.RT ---
No PRN MDI given. Pt resting. No respiratory distress noted.
[2023-08-18] MEDS: TRAMADOL HCL 50 MG TABLET PO (21:30)
[2023-08-18] MEDS: FUROSEMIDE 20 MG TABLET PO (21:31)
[2023-08-18] MEDS: NOREPINEPHRINE BITARTRATE 4 MG in DEXTROSE 5 % IN WATER 250 ML 30 MG IV (22:04)
[2023-08-19] VITALS (175 sets, daily range): BP systolic 58–138; BP diastolic 32–82; PULSE 74–161; RESP 16–50; TEMP 36.6–36.7; O2SAT 88–100
[2023-08-19] MEDS: NOREPINEPHRINE BITARTRATE 4 MG in DEXTROSE 5 % IN WATER 250 ML 82.5 MG IV ×2 (02:29→05:37)
[2023-08-19] MEDS: LACTATED RINGER'S SOLUTION 1,000 ML 500 ML IV (02:30)
[2023-08-19] MEDS: PANTOPRAZOLE SODIUM 40 MG VIAL IV ×2 (02:38→12:57)
[2023-08-19 05:15] LABS: Basophils Percent Auto 0.2 % (0.2-2.0); Eosinophils Percent Auto 0.1 % (0.9-7.0); Hematocrit 27.8 % (42.0-54.0); Hemoglobin 8.4 g/dL (14.0-18.0); Immature Granulocytes Abs Auto 0.04 10^3/uL (0.00-0.03); Immature Granulocytes Pct Auto 0.4 % (0.0-0.5); Lymphocytes Percent Auto 9.2 % (20.5-60.0); Mean Corpuscular HGB Conc 30.2 g/dL (29.9-35.2); Mean Corpuscular Hemoglobin 27.6 pg (25.9-34.0); Mean Corpuscular Volume 91.4 fL (80.0-94.0); Mean Platelet Volume 8.5 fL (9.5-13.5); Monocytes Absolute Auto 1.2 10^3/uL (0.3-0.8); Monocytes Percent Auto 11.1 % (1.7-12.0); Neutrophils Absolute Auto 8.2 10^3/uL (1.4-6.5); Platelet Count 251 10^3/uL (150-450); Red Blood Count 3.04 10^6/uL (4.70-6.10); Red Cell Distribution Width 17.3 % (11.0-15.0); White Blood Count 10.4 10^3/uL (4.0-11.0)
[2023-08-19 05:46] LABS: Alanine Aminotransferase 10 U/L (16-63); Albumin Globulin Ratio 0.7; Albumin Level 2.3 g/dL (3.4-5.0); Alkaline Phosphatase 84 U/L (46-116); Anion Gap 6.8; Aspartate Amino Transferase 34 U/L (15-37); BUN Creatinine Ratio 37.1; Bilirubin Total 0.5 mg/dL (0.2-1.0); Calcium 8.2 mg/dL (8.5-10.1); Carbon Dioxide 33.4 mmol/L (21.0-32.0); Chloride 94 mmol/L (98-107); Estimated GFR (African America >60 (>=60); Estimated GFR (Non-African Ame >60 (>=60); Globulin 3.5 g/dL; Glucose 144 mg/dL (74-106); Potassium 3.2 mmol/L (3.5-5.1); Sodium 131 mmol/L (136-145); Total Protein 5.8 g/dL (6.4-8.2)
--- NOTE | 2023-08-19 08:03 | XR_ITS ---
The [address] [address] Patient Name: JEANETTE ROWE MRN: [id number] date: 1935 Sex: M Assigned Patient Location: ICU Current Patient Location: ICU Accession/Order Number: [id number] Exam Date: 08/19/2023 09:00 Report Date: 08/19/2023 12:34 At the request of: SHAIKH LAINEY Procedure: XR chest 1V CHEST X-RAY, 1 VIEW HISTORY: Shortness of breath. COMPARISON: None. FINDINGS: Limited low-volume chest x-ray. The heart is enlarged. There is small bilateral pleural effusions with underlying airspace disease. There is a suggestion of pulmonary vascular congestion. There is no pneumothorax. XR/XR chest 1V IMPRESSION: Findings concerning for congestive heart failure in the appropriate clinical setting. Electronically authenticated by: SILVERIO TIRADO Date: 08/19/2023 12:34
[2023-08-19] MEDS: CALCIUM CARBONATE 600 MG TABLET PO (09:50)
[2023-08-19] MEDS: TRAMADOL HCL 50 MG TABLET PO (09:50)
[2023-08-19] MEDS: DIGOXIN 125 MCG TABLET PO (09:50)
[2023-08-19] MEDS: ALLOPURINOL 300 MG TABLET PO (09:50)
[2023-08-19] MEDS: FERROUS SULFATE 325 MG TABLET PO (09:50)
[2023-08-19] MEDS: NOREPINEPHRINE BITARTRATE 4 MG in DEXTROSE 5 % IN WATER 250 ML 53.34 MG IV (09:53)
--- NOTE | 2023-08-19 11:50 | P.IMPN_ITS ---
Progress Note: A&P Assessment and Plan (1) Sepsis associated hypotension: Assessment and Plan: Sepsis sec to Aspiration Pneumonia and possibly from b/l LE cellulitis. Persistent hypotension requiring IV levophed infusion. W/o Levophed BP remains below 60-70/30-40 Started on D5-0.45 at 125 ml/hr. Wean off Levophed as tolerated HR > 150, RR> 30, with hypoxia, hypotension. Stated on IV vancomycin,Rocephin to cover for Aspiration Pneumonia and presumed Cellulitis of b/l LE (2) Hypovolemic shock: Assessment and Plan: Hypovolemic plus septic shock. Hb is stable now. C/w IVF. Wean off Levophed as tolerated. (3) Aspiration pneumonia: Assessment and Plan: Aspirated earlier this morning. Prior concern for dysphagia. Patient reports cough when he eats. He was slightly tachypneic on exam. CXR pending. But will treat for aspiration Pneumonia in the setting of resp distress, hypoxia. On IV Vancomycin/Rocephin. Made NPO. Speech evaluation ordered. (4) Acute respiratory failure with hypoxia: Assessment and Plan: On 2 L O2 via NC. Appears comfortable now. Required suction of food that he apsiration. Monitor closely. Wean off as O2 as tolerated. (5) Bilateral cellulitis of lower leg: Assessment and Plan: Chronic skin discoloration, thickened skin with rubbery texture, eschar formation. Unsure of how his legs look at baseline. Patient himself is unsure. He reports b/l LE pain and there is erythema extending upward b/l so I will presume he has ongoing cellulitis contributing to his hemodynamic compromise. Started on Vancomycin/Rocephine. F/u blood cultures. (6) Acute anemia: Assessment and Plan: Anemia due to GI bleed. No overt GI Bleed noted. Hb stable since 2 units PRBC were transfused. Monitor H&H. Hold Eliquis for now (7) Anemia due to GI blood loss: Assessment and Plan: On Protonix. No active bleeding noted. EGD 08/18 - no sig abnormality noted Hemodynamically unstable for Colonoscopy. H&H is stable. Monitor for now. (8) Chronic atrial fibrillation: Assessment and Plan: Afib with RVR. HR in 150s earlier today. likely because of current illness, and being on Levophed. Better controlled now. Monitor for now. C/w Lopressor, Digoxin. Eliquis on Hold. (9) Dysphagia: Assessment and Plan: Made NPO. Speech evaluation ordered. (10) (HFpEF) heart failure with preserved ejection fraction: Assessment and Plan: Recent ECHO - normal EF. Hypovolemic today. Hold lasix. C/w IVF. (11) Hypertension: Assessment and Plan: Hold anti hypertensives due to hypotension (12) Dementia: Assessment and Plan: AAOX 3. Forgetful but carries out a conversation. Very hard of hearing. (13) Bedbound: Assessment and Plan: Chronically ill, bedbound for years. Standard precautions against pressure ulcer. Internal Medicine - PN: Subj Subjective Interval history: Seen and examind. Currently on Levophed for persistent hypotension. Afib with RVR, HR fluctuating b/w 90- 150. Aspirated on his breakfast earlier today - became hypoxic, short of breath, required suction. Patient reports feeling weak, tired. Denies pain, SOB. Has chronic cough, unable to expectorate. Exam Constitutional Vital Signs, click to edit/add: Last Vital Signs Temp 97.8 F 08/19/23 03:45 Pulse 122 H 08/19/23 11:20 Resp 25 H 08/19/23 11:20 BP 89/56 08/19/23 11:20 Pulse Ox 99 08/19/23 11:20 O2 Del Method Room Air 08/19/23 03:45 Documenting provider has reviewed patient's vital signs: yes Common normals: no apparent distress and oriented x3 General appearance: cooperative, lethargic and frail appearing [facility] Common normals: normocephalic and head/scalp atraumatic Eye Common normals: conjunctivae normal and no scleral icterus Conjunctiva: conjunctiva(e) normal Respiratory Common normals: normal respiratory effort and clear to auscultation bilaterally Effort & inspection: able to speak in complete sentences Cardio Common normals: S1 normal heart sound and S2 normal heart sound Rate: tachycardic Rhythm: abnormal rhythm Heart sounds: S1 normal and S2 normal GI Common normals: Normal to inspection, nondistended, normoactive bowel sounds present, soft to palpation, non-tender and no hepatosplenomegaly Palpation: soft and no hepatosplenomegaly Back & Pelvis Other: Stage 1 pressure ulcer. Extremity Other: Thick, dry, scaly skin in b/l LE, appears chronic but there seems to be an acute component to it with erythema extending upward b/l B/l toes- corns, thick skin. Neuro Common normals: oriented x3 and moves all extremities Other: Bed bound, can barely move his lower extremities Psych Common normals: mental status grossly normal, denies hallucinations, denies homicidal ideation and denies suicidal ideation Internal Medicine - PN: Obj Da Labs Labs: Laboratory Results - last 24 hr 08/18/23 08/18/23 08/19/23 09:15 16:20 04:47 WBC 8.6 10.4 RBC 3.10 L 3.04 L Hgb 8.7 L 8.4 L Hct 28.4 L 27.8 L MCV 91.6 91.4 MCH 28.1 27.6 MCHC 30.6 30.2 RDW 17.4 H 17.3 H Plt Count 264 251 MPV 8.8 L 8.5 L Neut % (Auto) 77.7 H 79.0 H Lymph % (Auto) 9.7 L 9.2 L [place] % (Auto) 11.8 11.1 Eos % (Auto) 0.0 L 0.1 L Baso % (Auto) 0.2 0.2 Neut # (Auto) 6.7 H 8.2 H Lymph # (Auto) 0.8 L 1.0 L [place] # (Auto) 1.0 H 1.2 H Eos # (Auto) 0.0 0.0 Baso # (Auto) 0.0 0.0 Abs Immat Gran (auto) 0.05 H 0.04 H Imm/Tot Granulo (auto) 0.6 H 0.4 Sodium 131 L Potassium 3.2 L Chloride 94 L Carbon Dioxide 33.4 H Anion Gap 6.8 BUN 23.0 H Creatinine 0.62 L Est GFR ( Amer) >60 Est GFR (Non-Af Amer) >60 BUN/Creatinine Ratio 37.1 Glucose 144 H Calcium 8.2 L Magnesium 2.2 Total Bilirubin 0.5 AST 34 ALT 10 L Alkaline Phosphatase 84 Total Protein 5.8 L Albumin 2.3 L Globulin 3.5 Albumin/Globulin Ratio 0.7 Urinary Catheter Management Urinary Catheter Management Urethral: Cath placed during this visit: yes Urethral indwelling: Yes Reason for continuing: measure accurate output Insertion date: 08/18/23 Insertion time: 02:00
[2023-08-19] MEDS: DEXTROSE 5 %-0.45 % SOD CHLORD 1,000 ML 125 ML IV ×2 (12:46→20:17)
[2023-08-19] MEDS: CEFTRIAXONE 1,000 MG in 0.9 % SODIUM CHLORIDE 50 ML 100 MG IV (12:48)
[2023-08-19] MEDS: NOREPINEPHRINE BITARTRATE 4 MG in DEXTROSE 5 % IN WATER 250 ML 68.58 MG IV (13:20)
[2023-08-19] MEDS: VANCOMYCIN HCL 1,250 MG in 0.9 % SODIUM CHLORIDE 250 ML 250 MG IV (14:08)
[2023-08-19 14:30] LABS: Hematocrit 29.3 % (42.0-54.0); Hemoglobin 8.8 g/dL (14.0-18.0)
--- NOTE | 2023-08-19 15:36 | RESP.RT ---
decreased to 2 LPM
--- NOTE | 2023-08-19 19:38 | RESP.RT ---
No PRN breathing tx given. Pt sleeping. No respiratory distress noted.
[2023-08-19] MEDS: DIGOXIN 500 MCG/2 ML AMPUL 125 MCG IV (21:36)
[2023-08-20] VITALS (210 sets, daily range): BP systolic 100–134; BP diastolic 42–67; PULSE 71–110; RESP 9–38; TEMP 36.4–36.9; O2SAT 89–100
[2023-08-20] MEDS: VANCOMYCIN HCL 1,250 MG in 0.9 % SODIUM CHLORIDE 250 ML 250 MG IV ×2 (01:14→14:20)
[2023-08-20] MEDS: PANTOPRAZOLE SODIUM 40 MG VIAL IV ×3 (02:00→21:12)
[2023-08-20] MEDS: ONDANSETRON PF 4 MG/2 ML VIAL IV (02:00)
[2023-08-20] MEDS: MORPHINE SULFATE 2 MG/ML SYRINGE IV (02:00)
--- NOTE | 2023-08-20 04:06 | RESP.RT ---
decreased down to 1L
[2023-08-20 05:27] LABS: Basophils Percent Auto 0.3 % (0.2-2.0); Eosinophils Percent Auto 0.3 % (0.9-7.0); Hematocrit 26.1 % (42.0-54.0); Hemoglobin 7.7 g/dL (14.0-18.0); Immature Granulocytes Abs Auto 0.03 10^3/uL (0.00-0.03); Immature Granulocytes Pct Auto 0.4 % (0.0-0.5); Lymphocytes Absolute Auto 0.7 10^3/uL (1.2-3.8); Lymphocytes Percent Auto 9.6 % (20.5-60.0); Mean Corpuscular HGB Conc 29.5 g/dL (29.9-35.2); Mean Corpuscular Hemoglobin 28.1 pg (25.9-34.0); Mean Corpuscular Volume 95.3 fL (80.0-94.0); Mean Platelet Volume 8.5 fL (9.5-13.5); Monocytes Absolute Auto 0.9 10^3/uL (0.3-0.8); Monocytes Percent Auto 12.2 % (1.7-12.0); Neutrophils Absolute Auto 5.6 10^3/uL (1.4-6.5); Neutrophils Percent Auto 77.2 % (43.0-75.0); Platelet Count 194 10^3/uL (150-450); Red Blood Count 2.74 10^6/uL (4.70-6.10); Red Cell Distribution Width 16.8 % (11.0-15.0); White Blood Count 7.2 10^3/uL (4.0-11.0)
[2023-08-20 05:46] LABS: Alanine Aminotransferase 11 U/L (16-63); Albumin Globulin Ratio 0.6; Albumin Level 1.7 g/dL (3.4-5.0); Alkaline Phosphatase 70 U/L (46-116); Anion Gap 2.7; Aspartate Amino Transferase 23 U/L (15-37); BUN Creatinine Ratio 28.3; Bilirubin Total 0.3 mg/dL (0.2-1.0); Calcium 7.9 mg/dL (8.5-10.1); Carbon Dioxide 33.7 mmol/L (21.0-32.0); Chloride 95 mmol/L (98-107); Estimated GFR (African America >60 (>=60); Estimated GFR (Non-African Ame >60 (>=60); Glucose 123 mg/dL (74-106); Potassium 3.4 mmol/L (3.5-5.1); Sodium 128 mmol/L (136-145); Total Protein 4.7 g/dL (6.4-8.2)
[2023-08-20] MEDS: DEXTROSE 5 %-0.45 % SOD CHLORD 1,000 ML 125 ML IV (06:16)
[2023-08-20] MEDS: DEXTROSE 5 %-0.45 % SOD CHLORD 1,000 ML 75 ML IV (10:01)
[2023-08-20] MEDS: DIGOXIN 500 MCG/2 ML AMPUL 125 MCG IV ×2 (10:41→21:12)
--- NOTE | 2023-08-20 11:34 | PM.IMPN1 ---
Progress Note: A&P Assessment and Plan (1) Sepsis associated hypotension: Assessment and Plan: Sepsis sec to Aspiration Pneumonia and possibly from b/l LE cellulitis. Stable hemodynamics now. Off of levophed. C/w vancomycin and rocephin. (2) Hypovolemic shock: Assessment and Plan: Hypovolemic plus septic shock - resolved now. Hb is stable now. C/w IVF. (3) Aspiration pneumonia: Assessment and Plan: NPO for recurrent aspiration. Speech eval pending. But will likely need PG tube placement for adequate nutrition. On Vancomycin and rocephin. (4) Acute respiratory failure with hypoxia: Assessment and Plan: on RA now., (5) Bilateral cellulitis of lower leg: Assessment and Plan: d/w son who agrees that his legs are more swollen and erythematous. On abx for presumed cellulitis. (6) Acute anemia: Assessment and Plan: Anemia due to GI bleed. No overt GI Bleed noted. Hb stable since 2 units PRBC were transfused. Monitor H&H. Hold Eliquis for now (7) Anemia due to GI blood loss: Assessment and Plan: On Protonix. No active bleeding noted. EGD 08/18 - no sig abnormality noted Hemodynamically unstable for Colonoscopy. H&H is stable. Monitor for now. (8) Chronic atrial fibrillation: Assessment and Plan: Rate controlled now. C.w lopressor and digoxin (9) Dysphagia: Assessment and Plan: Made NPO. Speech evaluation ordered. Will need PEG tube. (10) (HFpEF) heart failure with preserved ejection fraction: Assessment and Plan: Recent ECHO - normal EF. Hypovolemic today. Hold lasix. C/w IVF. (11) Hypertension: Assessment and Plan: resume Lopressor. (12) Dementia: Assessment and Plan: AAOX 3. Forgetful but carries out a conversation. Very hard of hearing. (13) Bedbound: Assessment and Plan: Chronically ill, bedbound for years. Standard precautions against pressure ulcer. (14) Severe protein-calorie malnutrition: Assessment and Plan: Severe malnutrition due to dysphagia, frailty and poor PO intake. Has less than 50% of required PO intake, there is report of weight loss too but unsure of how much weight loss he had. He will need to have PEG tube to allow him to have adequate nutrition. This was discussed in detail with his , patient and his son who are all in agreement and would like a surgical consult for it. Plan Needs PEG tube placement, continued montoring of his Hb, hemodynamic monitoring, c/w IV abx Internal Medicine - PN: Subj Subjective Interval history: Seen and examined. No overnight events. Off of Levophed drip. On RA Now. Vitals are stable. Exam Constitutional Vital Signs, click to edit/add: Last Vital Signs Temp 98.5 F 08/20/23 07:25 Pulse 85 08/20/23 11:00 Resp 19 08/20/23 07:25 BP 103/44 L 08/20/23 07:00 Pulse Ox 98 08/20/23 10:59 O2 Del Method Nasal Cannula 08/20/23 10:59 O2 Flow Rate 1 08/20/23 10:59 Documenting provider has reviewed patient's vital signs: yes Common normals: no apparent distress and oriented x3 General appearance: cooperative, ill appearing and frail appearing [place]EN[place] Common normals: normocephalic and head/scalp atraumatic Eye Common normals: conjunctivae normal and no scleral icterus Conjunctiva: conjunctiva(e) normal Respiratory Common normals: normal respiratory effort and clear to auscultation bilaterally Effort & inspection: able to speak in complete sentences Cardio Common normals: S1 normal heart sound and S2 normal heart sound Rate: regular rate Rhythm: abnormal rhythm Heart sounds: S1 normal and S2 normal GI Common normals: Normal to inspection, nondistended, normoactive bowel sounds present, soft to palpation, non-tender and no hepatosplenomegaly Palpation: soft and no hepatosplenomegaly Back & Pelvis Other: Stage 1 pressure ulcer. Extremity Other: Thick, dry, scaly skin in b/l LE, appears chronic but there seems to be an acute component to it with erythema extending upward b/l B/l toes- corns, thick skin. Neuro Common normals: oriented x3 and moves all extremities Other: Bed bound, can barely move his lower extremities Psych Common normals: mental status grossly normal, denies hallucinations, denies homicidal ideation and denies suicidal ideation Internal Medicine - PN: Obj Da Labs Labs: Laboratory Results - last 24 hr 08/19/23 08/20/23 14:25 04:55 WBC 7.2 RBC 2.74 L Hgb 8.8 L 7.7 L Hct 29.3 L 26.1 L MCV 95.3 H MCH 28.1 MCHC 29.5 L RDW 16.8 H Plt Count 194 MPV 8.5 L Neut % (Auto) 77.2 H Lymph % (Auto) 9.6 L [place] % (Auto) 12.2 H Eos % (Auto) 0.3 L Baso % (Auto) 0.3 Neut # (Auto) 5.6 Lymph # (Auto) 0.7 L [place] # (Auto) 0.9 H Eos # (Auto) 0.0 Baso # (Auto) 0.0 Abs Immat Gran (auto) 0.03 Imm/Tot Granulo (auto) 0.4 Sodium 128 L Potassium 3.4 L Chloride 95 L Carbon Dioxide 33.7 H Anion Gap 2.7 BUN 15.0 Creatinine 0.53 L Est GFR ( Amer) >60 Est GFR (Non-Af Amer) >60 BUN/Creatinine Ratio 28.3 Glucose 123 H Calcium 7.9 L Total Bilirubin 0.3 AST 23 ALT 11 L Alkaline Phosphatase 70 Total Protein 4.7 L Albumin 1.7 L Globulin 3.0 Albumin/Globulin Ratio 0.6 Urinary Catheter Management Urinary Catheter Management Urethral: Cath placed during this visit: yes Urethral indwelling: Yes Reason for continuing: measure accurate output Insertion date: 08/18/23 Insertion time: 02:00
[2023-08-20] MEDS: 0.9 % SODIUM CHLORIDE 1,000 ML 75 ML IV (11:41)
[2023-08-20] MEDS: CEFTRIAXONE 1,000 MG in 0.9 % SODIUM CHLORIDE 50 ML 100 MG IV (12:36)
[2023-08-20 14:18] LABS: Hemoglobin 7.9 g/dL (14.0-18.0)
--- NOTE | 2023-08-20 15:30 | PC.NURSE ---
Noted significant generalized edema on patient. Dr. Holbrook was notified as patient is currently receiving IVFs. Inquired if fluids should be stopped, or if a dose of Lasix should be given. Verbal orders were given to hold IVFs at this time and were stopped. Will continue to monitor patient.
[2023-08-20 16:39] LABS: Bilirubin Urine NEGATIVE (NEGATIVE); Blood Urine MODERATE (NEGATIVE); Clarity Urine CLEAR (CLEAR); Color Urine LT. YELLOW (YELLOW); Glucose Urine UA NEGATIVE (NEGATIVE); Ketones Urine NEGATIVE (NEGATIVE); Leukocyte Esterase Urine NEGATIVE (NEGATIVE); Nitrite Urine NEGATIVE (NEGATIVE); Protein Urine TRACE mg/dL (NEG/TRACE); Urobilinogen Urine 0.2 EU/dL (0.2-1.0); pH Urine 5.5 (5.0-9.0)
[2023-08-20 16:50] LABS: Bacteria Urine TRACE #/HPF (NONE SEEN); Cast Seen? NONE SEEN #/LPF (NONE SEEN); Crystals Seen? None Seen #/HPF (None Seen); Mucus Urine NONE SEEN (NONE SEEN); Squamous Epithelial Cell Urine NONE SEEN #/LPF (NONE/RARE); WBC Urine NONE SEEN #/HPF (NONE SEEN)
--- NOTE | 2023-08-20 20:19 | RESP.RT ---
No PRN breathing tx given. Pt sleeping. No respiratory distress noted.
[2023-08-21] VITALS (218 sets, daily range): BP systolic 112–140; BP diastolic 51–68; PULSE 68–95; RESP 12–40; TEMP 36.5; O2SAT 96–100; BMI 24.1
[2023-08-21] MEDS: VANCOMYCIN HCL 1,250 MG in 0.9 % SODIUM CHLORIDE 250 ML 250 MG IV ×2 (01:04→12:00)
[2023-08-21] MEDS: MORPHINE SULFATE 2 MG/ML SYRINGE IV (02:43)
[2023-08-21 05:05] LABS: Basophils Percent Auto 0.3 % (0.2-2.0); Eosinophils Absolute Auto 0.1 10^3/uL (0.0-0.7); Eosinophils Percent Auto 0.8 % (0.9-7.0); Hematocrit 25.9 % (42.0-54.0); Hemoglobin 7.7 g/dL (14.0-18.0); Immature Granulocytes Abs Auto 0.03 10^3/uL (0.00-0.03); Immature Granulocytes Pct Auto 0.5 % (0.0-0.5); Lymphocytes Absolute Auto 0.5 10^3/uL (1.2-3.8); Lymphocytes Percent Auto 7.9 % (20.5-60.0); Mean Corpuscular HGB Conc 29.7 g/dL (29.9-35.2); Mean Corpuscular Hemoglobin 28.4 pg (25.9-34.0); Mean Corpuscular Volume 95.6 fL (80.0-94.0); Mean Platelet Volume 8.7 fL (9.5-13.5); Monocytes Absolute Auto 0.7 10^3/uL (0.3-0.8); Monocytes Percent Auto 10.4 % (1.7-12.0); Neutrophils Absolute Auto 5.2 10^3/uL (1.4-6.5); Neutrophils Percent Auto 80.1 % (43.0-75.0); Platelet Count 214 10^3/uL (150-450); Red Blood Count 2.71 10^6/uL (4.70-6.10); Red Cell Distribution Width 16.6 % (11.0-15.0); White Blood Count 6.5 10^3/uL (4.0-11.0)
[2023-08-21 05:21] LABS: Alanine Aminotransferase 11 U/L (16-63); Albumin Globulin Ratio 0.5; Albumin Level 1.7 g/dL (3.4-5.0); Alkaline Phosphatase 73 U/L (46-116); Anion Gap 0.6; Aspartate Amino Transferase 24 U/L (15-37); BUN Creatinine Ratio 27.9; Bilirubin Total 0.3 mg/dL (0.2-1.0); Calcium 7.8 mg/dL (8.5-10.1); Carbon Dioxide 35.5 mmol/L (21.0-32.0); Chloride 96 mmol/L (98-107); Estimated GFR (African America >60 (>=60); Estimated GFR (Non-African Ame >60 (>=60); Globulin 3.1 g/dL; Glucose 88 mg/dL (74-106); Potassium 3.1 mmol/L (3.5-5.1); Sodium 129 mmol/L (136-145); Total Protein 4.8 g/dL (6.4-8.2)
[2023-08-21] MEDS: FUROSEMIDE 40 MG/4 ML VIAL IVP (07:23)
[2023-08-21] MEDS: DIGOXIN 500 MCG/2 ML AMPUL 125 MCG IV (09:56)
--- NOTE | 2023-08-21 10:10 | CM.NOTE ---
Updates sent to [facility] and spoke with [facility] regarding PEG tube insertion for pt. Unsure of when PEG tube will be placed but surgeon consulted d/t malnutrition and difficultly swallowing. Clive states she will need information on tube feed to place order.
--- NOTE | 2023-08-21 10:24 | PM.IMPN1 ---
Progress Note: A&P Assessment and Plan (1) Sepsis associated hypotension: Assessment and Plan: Sepsis sec to Aspiration Pneumonia and possibly from b/l LE cellulitis. Stable hemodynamics now. Off of levophed. C/w vancomycin and rocephin. (2) Hypovolemic shock: Assessment and Plan: Hypovolemic plus septic shock - resolved now. Hb is stable now. (3) Aspiration pneumonia: Assessment and Plan: NPO for recurrent aspiration. Speech eval pending. But will likely need PG tube placement for adequate nutrition. On Vancomycin and rocephin. (4) Acute respiratory failure with hypoxia: Assessment and Plan: on RA now. (5) Bilateral cellulitis of lower leg: Assessment and Plan: On vancomycin/rocephin. (6) Acute anemia: Assessment and Plan: Anemia due to GI bleed. No overt GI Bleed noted. Hb stable since 2 units PRBC were transfused. Monitor H&H. Hold Eliquis for now (7) Anemia due to GI blood loss: Assessment and Plan: On Protonix. No active bleeding noted. EGD 08/18 - no sig abnormality noted Hemodynamically unstable for Colonoscopy. H&H is stable. Monitor for now. (8) Chronic atrial fibrillation: Assessment and Plan: Rate controlled now. C.w lopressor and digoxin (9) Dysphagia: Assessment and Plan: Made NPO. Speech evaluation ordered. Will need PEG tube. (10) (HFpEF) heart failure with preserved ejection fraction: Assessment and Plan: Recent ECHO - normal EF. Mild volume overload. one dose of IV Lasix ordred (11) Hypertension: Assessment and Plan: resume Lopressor. (12) Dementia: Assessment and Plan: AAOX 3. Forgetful but carries out a conversation. Very hard of hearing. (13) Bedbound: Assessment and Plan: Chronically ill, bedbound for years. Standard precautions against pressure ulcer. (14) Severe protein-calorie malnutrition: Assessment and Plan: Severe malnutrition due to dysphagia, frailty and poor PO intake. Has less than 50% of required PO intake, there is report of weight loss too but unsure of how much weight loss he had. He will need to have PEG tube to allow him to have adequate nutrition. This was discussed in detail with his , patient and his son who are all in agreement and would like a surgical consult for it. D/w Dr Brody. He will take him for PEG placement possibly on Monday Internal Medicine - PN: Subj Subjective Interval history: Seen and examined. No overnight events. Exam Constitutional Vital Signs, click to edit/add: Last Vital Signs Temp 97.7 F 08/20/23 23:00 Pulse 82 08/21/23 09:56 Resp 20 08/21/23 09:56 BP 132/59 08/21/23 07:23 Pulse Ox 96 08/21/23 09:56 O2 Del Method Nasal Cannula 08/20/23 20:19 O2 Flow Rate 2 08/20/23 23:00 Documenting provider has reviewed patient's vital signs: yes Common normals: no apparent distress and oriented x3 General appearance: cooperative, ill appearing and frail appearing HENMT Common normals: normocephalic and head/scalp atraumatic Eye Common normals: conjunctivae normal and no scleral icterus Conjunctiva: conjunctiva(e) normal Respiratory Common normals: normal respiratory effort and clear to auscultation bilaterally Effort & inspection: able to speak in complete sentences Cardio Common normals: S1 normal heart sound and S2 normal heart sound Rate: regular rate Rhythm: abnormal rhythm Heart sounds: S1 normal and S2 normal GI Common normals: Normal to inspection, nondistended, normoactive bowel sounds present, soft to palpation, non-tender and no hepatosplenomegaly Palpation: soft and no hepatosplenomegaly Back & Pelvis Other: Stage 1 pressure ulcer. Extremity Other: Thick, dry, scaly skin in b/l LE, appears chronic but there seems to be an acute component to it with erythema extending upward b/l B/l toes- corns, thick skin. Neuro Common normals: oriented x3 and moves all extremities Other: Bed bound, can barely move his lower extremities Psych Common normals: mental status grossly normal, denies hallucinations, denies homicidal ideation and denies suicidal ideation Internal Medicine - PN: Obj Da Labs Labs: Laboratory Results - last 24 hr 08/19/23 08/20/23 08/21/23 16:30 14:01 04:40 WBC 6.5 RBC 2.71 L Hgb 7.9 L 7.7 L Hct 27.0 L 25.9 L MCV 95.6 H MCH 28.4 MCHC 29.7 L RDW 16.6 H Plt Count 214 MPV 8.7 L Neut % (Auto) 80.1 H Lymph % (Auto) 7.9 L [place] % (Auto) 10.4 Eos % (Auto) 0.8 L Baso % (Auto) 0.3 Neut # (Auto) 5.2 Lymph # (Auto) 0.5 L [place] # (Auto) 0.7 Eos # (Auto) 0.1 Baso # (Auto) 0.0 Abs Immat Gran (auto) 0.03 Imm/Tot Granulo (auto) 0.5 Sodium 129 L Potassium 3.1 L Chloride 96 L Carbon Dioxide 35.5 H Anion Gap 0.6 BUN 12.0 Creatinine 0.43 L Est GFR ( Amer) >60 Est GFR (Non-Af Amer) >60 BUN/Creatinine Ratio 27.9 Glucose 88 Calcium 7.8 L Total Bilirubin 0.3 AST 24 ALT 11 L Alkaline Phosphatase 73 Total Protein 4.8 L Albumin 1.7 L Globulin 3.1 Albumin/Globulin Ratio 0.5 Urine Color Lt. yellow Urine Clarity Clear Urine pH 5.5 Ur Specific [place] 1.020 Urine Protein Trace Urine Glucose (UA) Negative Urine Ketones Negative Urine Occult Blood Moderate A Urine Nitrite Negative Urine Bilirubin Negative Urine Urobilinogen 0.2 Ur Leukocyte Esterase Negative Urine RBC 5-10 A Urine WBC None seen Ur Squamous Epith Cells None seen Urine Crystals None seen Urine Bacteria Trace A Urine Casts None seen Urine Mucus None seen Urinary Catheter Management Urinary Catheter Management Urethral: Cath placed during this visit: yes Urethral indwelling: Yes Reason for continuing: measure accurate output Insertion date: 08/18/23 Insertion time: 02:00
--- NOTE | 2023-08-21 10:54 | CM.NOTE ---
Rounds made with Dr. Holbrook. Potential for PEG tube tomorrow. Dr. Holbrook explained this to Mr. Fordman and he verbalizes understanding.
[2023-08-21] MEDS: PANTOPRAZOLE SODIUM 40 MG VIAL IV ×2 (10:55→21:22)
[2023-08-21] MEDS: CEFTRIAXONE 1,000 MG in 0.9 % SODIUM CHLORIDE 50 ML 100 MG IV (11:23)
[2023-08-21 13:20] LABS: Vancomycin Trough 62.9 ug/mL (5.0-20.0)
--- NOTE | 2023-08-21 14:57 | XR_ITS ---
The [address] [address] Patient Name: JEANETTE ROWE MRN: [id number] date: 1935 Sex: M Assigned Patient Location: ICU Current Patient Location: ICU Accession/Order Number: [id number] Exam Date: 08/21/2023 14:50 Report Date: 08/21/2023 15:35 At the request of: JOSE FRANCISCO TEJEDA Procedure: XR chest 1V EXAM: XR chest 1V HISTORY: cough, evaluate aspiration pneumonia COMPARISON: 08/19/2023 TECHNIQUE: AP portable FINDINGS: LUNGS: Low lung volumes. Moderate bibasilar infiltrates obscuring the hemidiaphragms and partially obscuring the heart borders VASCULATURE: Moderately increased pulmonary vasculature PLEURA: No pneumothorax. Bilateral pleural effusions right greater than left CARDIAC: The heart is prominent in size possibly related to technique and low lung inflation MEDIASTINUM: No visible mass or adenopathy. Left pacemaker/AICD BONES: No fracture or visible bone lesion. OTHER: Head position obscures the lung apices XR/XR chest 1V IMPRESSION: Pulmonary vascular congestion Bibasilar infiltrates and pleural effusions, right greater than left Electronically authenticated by: SHAHZAD ALVAREZ Date: 08/21/2023 15:35
--- NOTE | 2023-08-21 16:04 | DIETREC ---
Recommend Two-Rc formula @ 40 mL/hour continuous feed to provide 1920 kcal, 80 gm PRO, 672 mL free water in 960 mL TV. Flush tube w/150 mL water q4 hours, total 900 mL q24 hrs. Also recommend 30 mL PRO-stat BID via PEG to provide an additional 200 kcal and 30 gm PRO to meet pt's estimated nutrient requirements.
--- NOTE | 2023-08-21 20:23 | PM.GSPN ---
Progress Note: A&P Assessment and Plan (1) Sepsis associated hypotension: (2) Hypovolemic shock: (3) Aspiration pneumonia: (4) Acute respiratory failure with hypoxia: (5) Bilateral cellulitis of lower leg: (6) Acute anemia: (7) Anemia due to GI blood loss: (8) Chronic atrial fibrillation: (9) Dysphagia: (10) (HFpEF) heart failure with preserved ejection fraction: (11) Hypertension: (12) Dementia: (13) Bedbound: (14) Severe protein-calorie malnutrition: Subjective Subjective Interval history: patient seen/examined/chart and ct scan images reviewed; patient with multiple comorbid conditions; now with dysphagia and aspiration, unable to take anything by mouth; patient difficult to communicate with due to dementia and hearing loss; wanted me to discuss procedure with his son, and POA; unable to reach him by phone this evening; will try tomorrow; patient high risk for PEG insertion; reviewing his ct, his anatomy my preclude PEG insertion; 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 Exam Constitutional Vital Signs, click to edit/add: Last Vital Signs Temp 97.7 F 08/21/23 19:00 Pulse 74 08/21/23 19:20 Resp 25 H 08/21/23 19:15 BP 129/68 08/21/23 19:00 Pulse Ox 98 08/21/23 19:15 O2 Del Method Nasal Cannula 08/21/23 19:06 O2 Flow Rate 2 08/21/23 19:06 Urinary Catheter Management Urinary Catheter Management Urethral: Cath placed during this visit: yes Urethral indwelling: Yes Reason for continuing: measure accurate output Insertion date: 08/18/23 Insertion time: 02:00
[2023-08-22] VITALS (68 sets, daily range): BP systolic 102–126; BP diastolic 52–59; PULSE 63–116; RESP 14–50; TEMP 36.6; O2SAT 92–97
--- NOTE | 2023-08-22 | OP_ITS ---
OPERATION DATE: ??08/22/2023 PREOPERATIVE DIAGNOSIS:? Dysphagia, aspiration pneumonia, failed swallowing study. POSTOPERATIVE DIAGNOSIS:? Stomach under the rib cage. PROCEDURE:? EGD attempted PEG tube insertion. SURGEON:? Gume Brody M.D. ANESTHESIA:? Monitored anesthesia care per Dr. Thomson. ESTIMATED BLOOD LOSS:? Zero. INDICATIONS AND CONSENT:? Patient is an 88-year-old male with multiple severe comorbid conditions, who was recently admitted with anemia, also found to be in heart failure with aspiration pneumonia.? He had a swallowing study yesterday which revealed the inability to initiate swallowing or cough, so he completely failed the swallowing study.? He has been NPO for several days.? Family has requested a PEG tube insertion.? I did review his recent CT scan and was concerned about his anatomy.? 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 I did report to the patient?s son that if it was unable to be dilated with air, so that it would come down below the rib cage, then the PEG tube would not be able to be inserted.? He did wish us to attempt the PEG tube.? Therefore, he did give consent for the procedure, understanding the risks and benefits, as well as the risks of bowel injury, gastric leak, bleeding, anesthetic complications, bowel perforation.? All of his questions were answered.? Informed consent was obtained. PROCEDURE:? Patient brought to the endoscopy suite, appropriately monitored and sedated by Dr. Thomson.? He was placed in the partial right lateral position with the head up.? Bite block was placed in the patient?s mouth.? The scope was then inserted into the oropharynx.? Under direct visualization, it was advanced into the esophagus, past the cricopharyngeus, down to the stomach.? The stomach was insufflated with air, which was extended down to the pylorus.? No transillumination was observed to the upper abdomen.? With palpation, up under the xiphoid, I could see some indentation of the lower portion of the stomach; however, there was no transillumination of this part.? So, likely colon was superimposed over this area.? Because of this, the PEG tube insertion was abandoned.? There was no old or new blood within the stomach.? No other abnormalities.? The scope was withdrawn.? The patient tolerated procedure well.? He was sent back to ICU in good condition. CC:? Patient?s family physician [place]
[2023-08-22] MEDS: VANCOMYCIN HCL 1,250 MG in 0.9 % SODIUM CHLORIDE 250 ML 250 MG IV (00:16)
[2023-08-22] MEDS: MORPHINE SULFATE 2 MG/ML SYRINGE IV (01:03)
[2023-08-22 05:47] LABS: Mean Corpuscular HGB Conc 28.6 g/dL (29.9-35.2); Mean Corpuscular Hemoglobin 27.5 pg (25.9-34.0); Mean Corpuscular Volume 96.2 fL (80.0-94.0); Mean Platelet Volume 8.6 fL (9.5-13.5); Platelet Count 248 10^3/uL (150-450); Red Blood Count 2.91 10^6/uL (4.70-6.10); Red Cell Distribution Width 16.5 % (11.0-15.0); White Blood Count 7.1 10^3/uL (4.0-11.0)
[2023-08-22 06:09] LABS: Alanine Aminotransferase 13 U/L (16-63); Albumin Globulin Ratio 0.5; Albumin Level 1.8 g/dL (3.4-5.0); Alkaline Phosphatase 80 U/L (46-116); Anion Gap 10.4; Aspartate Amino Transferase 22 U/L (15-37); BUN Creatinine Ratio 28.6; Bilirubin Total 0.4 mg/dL (0.2-1.0); Calcium 7.7 mg/dL (8.5-10.1); Carbon Dioxide 33.7 mmol/L (21.0-32.0); Chloride 96 mmol/L (98-107); Estimated GFR (African America >60 (>=60); Estimated GFR (Non-African Ame >60 (>=60); Globulin 3.3 g/dL; Glucose 61 mg/dL (74-106); Potassium 3.1 mmol/L (3.5-5.1); Sodium 137 mmol/L (136-145); Total Protein 5.1 g/dL (6.4-8.2)
[2023-08-22 07:04] LABS: Basophils Abs Manual 0.07 10^3/uL (0.00-0.10); Hypochromasia 1+; Lymphocytes Absolute Manual 0.42 10^3/uL (1.20-3.80); Monocytes Absolute Manual 0.07 10^3/uL (0.30-0.80); Segmented Neut Absolute Manual 6.53 10^3/uL (1.4-6.5)
[2023-08-22] MEDS: POTASSIUM CHLORIDE 40 MEQ in 0.9 % SODIUM CHLORIDE 250 ML 67.5 MEQ IV (07:53)
--- NOTE | 2023-08-22 08:21 | PC.NURSE ---
upon assessment patient is resting with eyes closed, easily arousable to verbal stimuli. patient updated on plan of care. patient verbalized understanding. Patient oriented to self. Patient denies pain at this time. A new 18 gauge IV catheter initiated in right arm, potassium infusion initiated per physicians order. Patient states that he is comfortable at this time. Currently positioned on his left side. Patient remains NPO. Talked to OR about possible surgery time. No scheduled surgery date or time as of now. Patient given call light and instructed on use and how to call for assistance. patient verbalized understanding. Patient denies any further needs at this time. Stimulation decreased and all safety monitors in place.
--- NOTE | 2023-08-22 08:55 | CM.NOTE ---
Faxed tube feed recommendations to [facility] for discharge planning.
[2023-08-22] MEDS: PANTOPRAZOLE SODIUM 40 MG VIAL IV ×2 (10:06→23:46)
--- NOTE | 2023-08-22 10:45 | CM.NOTE ---
Rounding with Dr. Holbrook. Plan is for peg tube today. Dr. Holbrook is aware of nutrition recommendations for tube feedings. Plan is to discharge to [place] when medically ready.
[2023-08-22] MEDS: DIGOXIN 500 MCG/2 ML AMPUL 125 MCG IV (10:54)
[2023-08-22] MEDS: CEFTRIAXONE 1,000 MG in 0.9 % SODIUM CHLORIDE 50 ML 100 MG IV (12:40)
[2023-08-22 13:03] LABS: Vancomycin Trough 30.7 ug/mL (5.0-20.0)
--- NOTE | 2023-08-22 15:49 | PM.IMPN1 ---
Progress Note: A&P Assessment and Plan (1) Sepsis associated hypotension: Assessment and Plan: Sepsis sec to Aspiration Pneumonia and possibly from b/l LE cellulitis. Stable hemodynamics now. Off of levophed. C/w vancomycin and rocephin. (2) Hypovolemic shock: Assessment and Plan: Hypovolemic plus septic shock - resolved now. Hb is stable now. (3) Aspiration pneumonia: Assessment and Plan: NPO for recurrent aspiration. Failed swallow evaluation On Vancomycin and rocephin. (4) Acute respiratory failure with hypoxia: Assessment and Plan: on RA now. (5) Bilateral cellulitis of lower leg: Assessment and Plan: On vancomycin/rocephin. (6) Acute anemia: Assessment and Plan: Anemia due to GI bleed. No overt GI Bleed noted. Hb stable since 2 units PRBC were transfused. Monitor H&H. Hold Eliquis for now (7) Anemia due to GI blood loss: Assessment and Plan: On Protonix. No active bleeding noted. EGD 08/18 - no sig abnormality noted Hemodynamically unstable for Colonoscopy. H&H is stable. Monitor for now. (8) Chronic atrial fibrillation: Assessment and Plan: Rate controlled now. C.w lopressor and digoxin (9) Dysphagia: Assessment and Plan: Made NPO. Speech evaluation failed. Strict NPO. Unable to get PEG due to complicated anatomy. Family deciding between hospice vs transfer to tertiary care center. (10) (HFpEF) heart failure with preserved ejection fraction: Assessment and Plan: Recent ECHO - normal EF. Appears euvolemic. (11) Hypertension: Assessment and Plan: c/w lopressor. (12) Dementia: Assessment and Plan: AAOX 3. Forgetful but carries out a conversation. Very hard of hearing. (13) Bedbound: Assessment and Plan: Chronically ill, bedbound for years. Standard precautions against pressure ulcer. (14) Severe protein-calorie malnutrition: Assessment and Plan: Severe malnutrition due to dysphagia, frailty and poor PO intake. Has less than 50% of required PO intake, there is report of weight loss too but unsure of how much weight loss he had. Unable to get PEG tube due to difficult anatomy. If family decides to pursue it, will have to transfer to tertiary care center. Family discussing with each other about possible hospice. Internal Medicine - PN: Subj Subjective Interval history: Seen and examined. No overnight events. Was scheduled for PEG but procedure canceled due to technical difficulty. Exam Constitutional Vital Signs, click to edit/add: Last Vital Signs Temp 97.8 F 08/22/23 08:00 Pulse 72 08/22/23 15:00 Resp 16 08/22/23 12:00 BP 108/52 08/22/23 12:00 Pulse Ox 93 L 08/22/23 12:00 O2 Del Method Room Air 08/22/23 12:00 O2 Flow Rate 1 08/22/23 04:00 Documenting provider has reviewed patient's vital signs: yes Common normals: no apparent distress and oriented x3 General appearance: frail appearing HENMT Common normals: normocephalic and head/scalp atraumatic Head and scalp: normocephalic and atraumatic Eye Common normals: conjunctivae normal and no scleral icterus Conjunctiva: conjunctiva(e) normal Respiratory Common normals: normal respiratory effort and clear to auscultation bilaterally Cardio Common normals: regular rate, S1 normal heart sound and S2 normal heart sound Rate: regular rate Heart sounds: S1 normal and S2 normal GI Common normals: Normal to inspection, nondistended, normoactive bowel sounds present Extremity Common normals: no clubbing, cyanosis or edema Neuro Common normals: oriented x3, moves all extremities and no focal motor deficits Psych Common normals: mental status grossly normal Internal Medicine - PN: Obj Da Labs Labs: Laboratory Results - last 24 hr 08/22/23 08/22/23 05:15 12:10 WBC 7.1 RBC 2.91 L Hgb 8.0 L Hct 28.0 L MCV 96.2 H MCH 27.5 MCHC 28.6 L RDW 16.5 H Plt Count 248 MPV 8.6 L Seg Neuts % (Manual) 92.0 Lymphocytes % (Manual) 6.0 L Monocytes % (Manual) 1.0 L Eosinophils % (Manual) 0.0 L Basophils % (Manual) 1.0 Neutrophils # (Manual) 6.53 H Lymphocytes # (Manual) 0.42 L Monocytes # (Manual) 0.07 L Eosinophils # (Manual) 0.00 Basophils # (Manual) 0.07 Hypochromasia 1+ Sodium 137 Potassium 3.1 L Chloride 96 L Carbon Dioxide 33.7 H Anion Gap 10.4 BUN 12.0 Creatinine 0.42 L Est GFR ( Amer) >60 Est GFR (Non-Af Amer) >60 BUN/Creatinine Ratio 28.6 Glucose 61 L Calcium 7.7 L Total Bilirubin 0.4 AST 22 ALT 13 L Alkaline Phosphatase 80 Total Protein 5.1 L Albumin 1.8 L Globulin 3.3 Albumin/Globulin Ratio 0.5 Vancomycin Trough 38.0 H* 30.7 H* Urinary Catheter Management Urinary Catheter Management Urethral: Cath placed during this visit: yes Urethral indwelling: Yes Reason for continuing: measure accurate output Insertion date: 08/18/23 Insertion time: 02:00
--- NOTE | 2023-08-22 17:35 | W.PC.ACHO ---
Registration Status: ADM IN Primary Language: Maltese Preferred Language: Maltese Active Medications Generic Name Dose Route Start Last Admin Trade Name Freq PRN Reason Stop Dose Admin Acetaminophen 650 mg 08/18/23 00:19 Acetaminophen 325 Mg Tablet PO Q6H PRN Fever Albuterol 1 puff 08/18/23 00:17 Albuterol Sulfate 200 Puff/6.7 Gm Inhaler IH DAILY PRN shortness of breath or wheezing Albuterol/Ipratropium 3 ml 08/19/23 10:36 Ipratropium/Albuterol Sulfate 3 Ml Ampul.Neb IH Q4H PRN Shortness Of Breath Or Wheezing Bisacodyl 10 mg 08/18/23 00:17 Bisacodyl 10 Mg Rectal Suppository [place] DAILY PRN constipation Digoxin 125 mcg 08/22/23 09:00 08/22/23 08:07 Digoxin 125 Mcg Tablet PO Not Given QD ALDO Guaifenesin 600 mg 08/18/23 00:17 Guaifenesin 600 Mg Tab.Er.12h PO BID PRN cough Ceftriaxone Sodium 1,000 mg/ 50 mls @ 100 mls/hr 08/19/23 12:00 08/22/23 13:14 Sodium Chloride IV Infused Q24H ALDO Infusion Vancomycin HCl 750 mg/ Sodium 250 mls @ 250 mls/hr 08/23/23 03:00 Chloride IV Q12H ALDO Lactic Acid 1 gm 08/18/23 00:48 Ammonium Lactate 12% Lotion 226 Gm Bottle TOPICAL DAILY PRN dry skin Metoprolol Tartrate 25 mg 08/20/23 21:00 08/22/23 08:04 Metoprolol Tartrate 25 Mg Tablet PO Not Given BID ALDO Morphine Sulfate 2 mg 08/19/23 20:45 08/22/23 01:03 Morphine Sulfate 2 Mg/Ml Syringe IV 2 mg Q4H PRN Administration Pain Scale 7-10 Ondansetron HCl 4 mg 08/18/23 00:19 08/20/23 02:00 Ondansetron Pf 4 Mg/2 Ml Vial IV 4 mg Q4H PRN Administration Nausea And Vomiting Pantoprazole Sodium 40 mg 08/18/23 00:45 08/22/23 10:06 Pantoprazole Sodium 40 Mg Vial IV 40 mg Q12H ALDO Administration Consults Category Date Time Status Consult to Hospice Routine Cons 08/22/23 Ordered IV Insertion/Site Date of IV Line Insertion [ 11/06/23 Short PIV (<1.75 in) 22g right Forearm] IV Insertion Time [Short PIV ( 11:30 <1.75 in) 22g right Forearm] Neurology [place] coma scale total score 14 [place] coma scale total score 15 Respiratory Pulse Oximetry 94 Pulse Oximetry 93 Pulse Oximetry 94 Pulse Oximetry 92 Pulse Oximetry 96 Pulse Oximetry 96 Pulse Oximetry 96 Pulse Oximetry 96 Pulse Oximetry 96 Pulse Oximetry 97 Pulse Oximetry 96 Pulse Oximetry 97 Pulse Oximetry 96 Pulse Oximetry 96 Pulse Oximetry 97 Pulse Oximetry 96 Pulse Oximetry 97 Pulse Oximetry 96 Pulse Oximetry 96 Pulse Oximetry 95 Pulse Oximetry 96 Pulse Oximetry 96 Pulse Oximetry 96 Pulse Oximetry 96 Pulse Oximetry 95 Pulse Oximetry 96 Pulse Oximetry 96 Pulse Oximetry 96 Pulse Oximetry 96 Pulse Oximetry 95 Pulse Oximetry 96 Pulse Oximetry 96 Pulse Oximetry 96 Pulse Oximetry 95 Pulse Oximetry 95 Pulse Oximetry 96 Pulse Oximetry 96 Pulse Oximetry 96 Pulse Oximetry 96 Pulse Oximetry 96 Pulse Oximetry 96 Pulse Oximetry 95 Pulse Oximetry 96 Pulse Oximetry 95 Pulse Oximetry 96 Pulse Oximetry 95 Pulse Oximetry 94 Pulse Oximetry 96 Pulse Oximetry 96 Pulse Oximetry 96 Pulse Oximetry 96 Pulse Oximetry 96 Pulse Oximetry 96 Pulse Oximetry 96 Pulse Oximetry 97 Pulse Oximetry 97 Pulse Oximetry 97 Pulse Oximetry 97 Pulse Oximetry 97 Pulse Oximetry 97 Pulse Oximetry 97 Pulse Oximetry 97 Pulse Oximetry 97 Pulse Oximetry 97 Pulse Oximetry 97 Pulse Oximetry 97 Pulse Oximetry 97 Pulse Oximetry 97 Pulse Oximetry 97 Pulse Oximetry 97 Pulse Oximetry 97 Pulse Oximetry 97 Pulse Oximetry 97 Pulse Oximetry 97 Pulse Oximetry 97 Pulse Oximetry 97 Pulse Oximetry 97 Pulse Oximetry 97 Pulse Oximetry 97 Pulse Oximetry 97 Pulse Oximetry 97 Pulse Oximetry 97 Pulse Oximetry 97 Pulse Oximetry 97 Pulse Oximetry 97 Pulse Oximetry 97 Pulse Oximetry 97 Pulse Oximetry 96 Pulse Oximetry 96 Pulse Oximetry 97 Pulse Oximetry 97 Pulse Oximetry 97 Pulse Oximetry 97 Pulse Oximetry 97 Pulse Oximetry 97 Pulse Oximetry 97 Pulse Oximetry 97 Pulse Oximetry 97 Pulse Oximetry 97 Pulse Oximetry 97 Pulse Oximetry 97 Pulse Oximetry 97 Pulse Oximetry 97 Pulse Oximetry 97 Pulse Oximetry 97 Pulse Oximetry 97 Pulse Oximetry 97 Pulse Oximetry 97 Pulse Oximetry 97 Pulse Oximetry 97 Pulse Oximetry 97 Pulse Oximetry 97 Pulse Oximetry 96 Pulse Oximetry 97 Pulse Oximetry 98 Pulse Oximetry 97 Pulse Oximetry 97 Pulse Oximetry 97 Pulse Oximetry 98 Pulse Oximetry 98 Pulse Oximetry 97 Pulse Oximetry 98 Pulse Oximetry 98 Pulse Oximetry 97 Pulse Oximetry 98 Pulse Oximetry 98 Pulse Oximetry 97 Pulse Oximetry 98 Pulse Oximetry 97 Pulse Oximetry 98 Pulse Oximetry 98 Pulse Oximetry 98 Pulse Oximetry 98 Pulse Oximetry 98 Pulse Oximetry 98 Pulse Oximetry 98 Oxygen Delivery Method Room Air Oxygen Delivery Method Room Air Oxygen Delivery Method Room Air Oxygen Delivery Method Nasal Cannula Oxygen Delivery Flow Rate 1 Oxygen Delivery Flow Rate 1 Oxygen Delivery Flow Rate 1 Oxygen Delivery Flow Rate 2 Oxygen Delivery Flow Rate 2 Cardiology Heart Sounds Irregular Bowels Bowel Pattern Constipated Renal Urinary Incontinence Type Total Catheter Urinary Catheter Date of 08/18/23 Insertion [Urethral] Urinary Catheter Date of 08/18/23 Insertion [Urethral] Urinary Catheter Time of 02:00 Insertion [Urethral] Urinary Catheter Time of 02:00 Insertion [Urethral]
[2023-08-23] VITALS (22 sets, daily range): BP systolic 100–120; BP diastolic 44–68; PULSE 70–128; RESP 16–20; TEMP 36.4–36.7; O2SAT 90–96
[2023-08-23] MEDS: VANCOMYCIN HCL 750 MG in 0.9 % SODIUM CHLORIDE 250 ML 150 MG IV ×2 (05:01→17:04)
[2023-08-23 05:40] LABS: Basophils Percent Auto 0.2 % (0.2-2.0); Eosinophils Percent Auto 0.1 % (0.9-7.0); Hematocrit 30.2 % (42.0-54.0); Hemoglobin 8.6 g/dL (14.0-18.0); Immature Granulocytes Abs Auto 0.03 10^3/uL (0.00-0.03); Immature Granulocytes Pct Auto 0.4 % (0.0-0.5); Lymphocytes Absolute Auto 0.5 10^3/uL (1.2-3.8); Lymphocytes Percent Auto 6.1 % (20.5-60.0); Mean Corpuscular HGB Conc 28.5 g/dL (29.9-35.2); Mean Corpuscular Hemoglobin 27.7 pg (25.9-34.0); Mean Corpuscular Volume 97.4 fL (80.0-94.0); Mean Platelet Volume 8.7 fL (9.5-13.5); Monocytes Absolute Auto 0.8 10^3/uL (0.3-0.8); Neutrophils Percent Auto 83.2 % (43.0-75.0); Platelet Count 302 10^3/uL (150-450); Red Cell Distribution Width 17.1 % (11.0-15.0); White Blood Count 8.4 10^3/uL (4.0-11.0)
[2023-08-23 06:07] LABS: Alanine Aminotransferase 15 U/L (16-63); Albumin Globulin Ratio 0.5; Alkaline Phosphatase 82 U/L (46-116); Anion Gap 15.5; Aspartate Amino Transferase 31 U/L (15-37); Bilirubin Total 0.4 mg/dL (0.2-1.0); Calcium 8.6 mg/dL (8.5-10.1); Carbon Dioxide 26.1 mmol/L (21.0-32.0); Chloride 98 mmol/L (98-107); Estimated GFR (African America >60 (>=60); Estimated GFR (Non-African Ame >60 (>=60); Globulin 3.7 g/dL; Glucose 59 mg/dL (74-106); Potassium 3.6 mmol/L (3.5-5.1); Sodium 136 mmol/L (136-145); Total Protein 5.7 g/dL (6.4-8.2)
--- NOTE | 2023-08-23 09:23 | CM.NOTE ---
Called [place] for update on pt. Family will be meeting with Hospice today at 1:00 and possible D/C back to [facility] with Hospice care.
[2023-08-23] MEDS: PANTOPRAZOLE SODIUM 40 MG VIAL IV ×2 (09:25→21:54)
--- NOTE | 2023-08-23 11:06 | CM.NOTE ---
Rounding with Dr. Holbrook. Awaiting hospice consultation at 1pm today. Discharge plan unknown at this time. No peg tube was able to be placed on 08/22.
--- NOTE | 2023-08-23 11:08 | CM.NOTE ---
2nd Important Message From Medicare discussed verbally with pt's son Ruddy, denies any questions or concerns at this time.
[2023-08-23] MEDS: AMIODARONE IN DEXTROSE,ISO-OSM 150 MG/100 ML PIGGYBACK 600 MG IV (12:08)
--- NOTE | 2023-08-23 12:09 | PC.NURSE ---
FOLDER SEAMER at bedside during Amiodarone infusion. Pt alert and oriented to self, time, and place. Pt denies pain. Resp. rate 22 with accessory muscle usage. SpO2 94% on RA. HR 90-120 irregular at the start of infusion.
--- NOTE | 2023-08-23 12:18 | P.IMPN_ITS ---
Progress Note: A&P Assessment and Plan (1) V-tach: Assessment and Plan: Patient doing into Vtach intermittently. Two such episodes since this morning. Remains asymptomatic, and hemodynamically stable. D/w Son in detail. He would like him to be treated medically. Will give one time dose of IV amiodarone. He agrees on no resuscitation, invasive measures, and defibrillation (2) Sepsis associated hypotension: Assessment and Plan: Sepsis sec to Aspiration Pneumonia and possibly from b/l LE cellulitis. C/w vancomycin and rocephin. Cultures negative. (3) Hypovolemic shock: Assessment and Plan: Hypovolemic plus septic shock - resolved now. Hb is stable now. (4) Aspiration pneumonia: Assessment and Plan: NPO for recurrent aspiration. Failed swallow evaluation On Vancomycin and rocephin. (5) Acute respiratory failure with hypoxia: Assessment and Plan: on RA now. (6) Bilateral cellulitis of lower leg: Assessment and Plan: On vancomycin/rocephin. (7) Acute anemia: Assessment and Plan: Anemia due to GI bleed. No overt GI Bleed noted. Hb stable since 2 units PRBC were transfused. Monitor H&H. Hold Eliquis for now (8) Anemia due to GI blood loss: Assessment and Plan: On Protonix. No active bleeding noted. EGD 08/18 - no sig abnormality noted Hemodynamically unstable for Colonoscopy. H&H is stable. Monitor for now. (9) Chronic atrial fibrillation: Assessment and Plan: Rate controlled now. C.w lopressor and digoxin (10) Dysphagia: Assessment and Plan: Speech evaluation failed. Unable to get PEG due to complicated anatomy. Hospice consulted placed last evening. D/w son who is also an RN. He would like PO diet resumed for comfort care measures. Diet ordered. (11) (HFpEF) heart failure with preserved ejection fraction: Assessment and Plan: Recent ECHO - normal EF. Appears euvolemic. (12) Hypertension: Assessment and Plan: c/w lopressor. (13) Dementia: Assessment and Plan: AAOX 3. Forgetful but carries out a conversation. Very hard of hearing. (14) Bedbound: Assessment and Plan: Chronically ill, bedbound for years. Standard precautions against pressure ulcer. (15) Severe protein-calorie malnutrition: Assessment and Plan: Severe malnutrition due to dysphagia, frailty and poor PO intake. Has less than 50% of required PO intake, there is report of weight loss too but unsure of how much weight loss he had. Unable to get PEG tube due to difficult anatomy. Diet resumed after d/w son who understands that this may not be safe. (16) Advanced care planning/counseling discussion: Assessment and Plan: Advanced care planning and discussion with patient and his son. I spoke to the son over phone. Explained/informed in detail on patients clinical status, treatment plan, difference between DNR CCA and DNR CC. Also educated on hospice care. Answered questions and cleared away his confusion. Son would like to c/w current code status. Patient will be DNR CCA with no CPR, intubation or defibrillation. Ok to resume modified diet and son understands this may result in aspiration. Spent over 30 minutes that over counseling, education - separate from the time spent on his clinical assessment, clinical decision making, care co ordination and clinical documentation Internal Medicine - PN: Subj Subjective Interval history: Seen and examined. Doing well and denies any active complaints. However, intermittent Vtach noted on tele. Remains stable and asymptomatic. Exam Constitutional Vital Signs, click to edit/add: Last Vital Signs Temp 97.9 F 08/23/23 09:14 Pulse 90 08/23/23 12:08 Resp 16 08/23/23 09:16 BP 117/45 L 08/23/23 12:08 Pulse Ox 94 L 08/23/23 11:40 O2 Del Method Room Air 08/23/23 11:40 O2 Flow Rate 1 08/22/23 04:00 Documenting provider has reviewed patient's vital signs: yes Common normals: no apparent distress and oriented x3 General appearance: frail appearing Respiratory Common normals: normal respiratory effort and clear to auscultation bilaterally Cardio Common normals: regular rate Rate: regular rate Heart sounds: S1 normal and S2 normal Extremity Other: chronic skin changes, thickened/discolored skin with erythema b/l in LE Neuro Common normals: oriented x3, moves all extremities and no focal motor deficits Psych Common normals: mental status grossly normal Internal Medicine - PN: Obj Da Labs Labs: Laboratory Results - last 24 hr 08/22/23 08/23/23 12:10 04:20 WBC 8.4 RBC 3.10 L Hgb 8.6 L Hct 30.2 L MCV 97.4 H MCH 27.7 MCHC 28.5 L RDW 17.1 H Plt Count 302 MPV 8.7 L Neut % (Auto) 83.2 H Lymph % (Auto) 6.1 L Teller % (Auto) 10.0 Eos % (Auto) 0.1 L Baso % (Auto) 0.2 Neut # (Auto) 7.0 H Lymph # (Auto) 0.5 L Teller # (Auto) 0.8 Eos # (Auto) 0.0 Baso # (Auto) 0.0 Abs Immat Gran (auto) 0.03 Imm/Tot Granulo (auto) 0.4 Sodium 136 Potassium 3.6 Chloride 98 Carbon Dioxide 26.1 Anion Gap 15.5 BUN 13.0 Creatinine 0.59 L Est GFR ( Amer) >60 Est GFR (Non-Af Amer) >60 BUN/Creatinine Ratio 22.0 Glucose 59 L Calcium 8.6 Total Bilirubin 0.4 AST 31 ALT 15 L Alkaline Phosphatase 82 Total Protein 5.7 L Albumin 2.0 L Globulin 3.7 Albumin/Globulin Ratio 0.5 Vancomycin Trough 30.7 H* Urinary Catheter Management Urinary Catheter Management Urethral: Cath placed during this visit: yes Urethral indwelling: Yes Reason for continuing: measure accurate output Insertion date: 08/18/23 Insertion time: 02:00
--- NOTE | 2023-08-23 12:33 | PC.NURSE ---
Pt tolerated infusion without incident. Rhythm post infusion 70 v-paced. Pt denies discomforts.
--- NOTE | 2023-08-23 13:41 | CM.NOTE ---
Called [facility] for update on pt, family meeting with Hospice at 1:00. No decision at this time.
[2023-08-23] MEDS: CEFTRIAXONE 1,000 MG in 0.9 % SODIUM CHLORIDE 50 ML 100 MG IV (14:09)
--- NOTE | 2023-08-23 14:11 | CM.NOTE ---
[facility] talking with pt and family at this time.
--- NOTE | 2023-08-23 15:09 | CM.NOTE ---
Spoke with Hospice, family wishes are to sign on tomorrow with [facility]. [facility] has set up transport for pt to return to [facility] at 2:00 tomorrow. Called [facility] at [facility] to update on pt and time of his return.
--- NOTE | 2023-08-23 16:51 | PC.NURSE ---
educated patient and family members about patients diet order and the possible complications that are associated with eating. patient and family want pt to attempt to eat and drink.
--- NOTE | 2023-08-23 17:34 | PC.NURSE ---
1110 Am called per icu that pt in room 203 is having a change in heart rate status. notified RN vitals obtained. patient denies pain. physician on the floor and called patients family.
--- NOTE | 2023-08-23 17:41 | PC.NURSE ---
1716 notified per icu of pt status change of heart rate. heart rate tachycardic. blood pressure, respirations, and oxygen saturation wnl. patient denies pain or need for assistance. notified physician of patient status. physician states he will call family and discuss patient status and update orders.
--- NOTE | 2023-08-23 20:21 | RESP.RT ---
No PRN breathing tx given. Pt sleeping. No respiratory distress noted.
[2023-08-23] MEDS: METOPROLOL TARTRATE 25 MG TABLET PO (21:53)
[2023-08-24 04:25] VITALS: O2SAT 94
[2023-08-24] MEDS: VANCOMYCIN HCL 750 MG in 0.9 % SODIUM CHLORIDE 250 ML 250 MG IV (05:30)
[2023-08-24 05:50] VITALS: BP 112/54; PULSE 76; RESP 22; TEMP 36.3; O2SAT 89
--- NOTE | 2023-08-24 11:29 | PM.DS1 ---
DS: Providers Provider Date of admission: 08/18/23 05:53 Primary care physician: BERNICE GARCIA DO Consults: 08/18/23 08:40 Consult to General Surgeon Routine Consulting Provider: Nacho Lopez Reason for consultation: GI bleed 08/19/23 11:59 Speech Therapy Eval and Treat Routine Reason for consultation: aspiration 08/21/23 06:14 Consult to General Surgeon Routine Consulting Provider: Gume Brody Reason for consultation: PEG tube placement 08/22/23 Consult to Hospice Routine Reason for consultation: family decision Has provider been notified: Yes Attending physician on discharge: Shaikh Yusef Discharging clinician: Shaikh Yusef Anticipated date of discharge: 08/24/23 DS: Diagnosis Discharge Diagnosis (1) V-tach: Assessment and plan: Comfort care measures only. Was given IV amiodarone push with no improvement (2) Sepsis associated hypotension: Assessment and plan: Resolved. BP stable (3) Hypovolemic shock: Assessment and plan: Resolved. BP stable (4) Aspiration pneumonia: Assessment and plan: No resp symptoms. on RA. No need for outpatient abx. s/p rx. (5) Acute respiratory failure with hypoxia: Assessment and plan: on RA. Resolved. (6) Bilateral cellulitis of lower leg: Assessment and plan: Chronic skin changes. Hold off abx as CC measures only. (7) Acute anemia: Assessment and plan: Hb stable. Hold Eliquis. CC meaures only. (8) Anemia due to GI blood loss: Assessment and plan: no active bleeding. self limiting. Hb stable. Hold Eliquis as outpaitent (9) Chronic atrial fibrillation: Assessment and plan: C/w lopressor/Dig. Eliquis on hold (10) Dysphagia: Assessment and plan: Failed swallow eval. Unable to get PEG. CC measures only. Patient on modified diet. Family aware and in agreement. (11) (HFpEF) heart failure with preserved ejection fraction: Assessment and plan: Resume PO lasix as outpatient. (12) Hypertension: Assessment and plan: C/w home meds (13) Dementia: Assessment and plan: Stable (14) Bedbound: Assessment and plan: due to physical deconditioning. CC meausres only. (15) Severe protein-calorie malnutrition: Assessment and plan: due ton inadequate intake. Resumed PO diet. DS: Summary Hospital Course Hospital Course: Patient originally presented to ED after routine blood work indicated low Hb. He was admitted for blood transfusion and anemia w/u. Eliquis was withheld, patient started on protonix IV. He also required blood tx for anemia. Patient underwent EGD with no active bleeding noted on it. He later on became hypotensive, not responding to fluid resuscitation and was started on Levophed for septic shock. Patient's HR also became poorly controlled, with HR in 150s due to afib with RVR. W/u indicated underlying sepsis sec to aspiration PNA and b/l LE cellulitis and he was started on IV abx for it. He clinically improved, was taken off of levophed, HR returned to goal with IV digoxin. Of note, his Hb remained stable since transfusion and there was no evidence of overt bleeding. Patient was noted to have difficulty with PO intake, raising concerns for continued aspiration. He was made NPO, and had a swallow study that indicated that patient was aspirating even on a modificed diet. General surgery was consulted for PEG placement but he could not place it due to difficult anatomy. Given his age, frailty, multiple medical comorbidities, discussion ensued regarding goals of care and patient was made DNR CC. His diet was resumed also. D/c to long term and family will sign up for hospice once he arrives there. Yesterday, patient was noted to have periods of stable vtach alternating with Afib with RVR. He was given an IV amiodarone push after d/w his son who also has his POA. Later on, after detailed discussion, family decided to withdraw care, d/c tele and make patient comfortable and let natue takes it course. Status at Discharge Functional status at discharge: bed bound Overall status at discharge: patient is not back to baseline Time Spent with Patient Time attestation: Total time spent providing and/or coordinating discharge services: Time spent: greater than 30 minutes Exam Constitutional Vital Signs, click to edit/add: Last Vital Signs Temp 97.4 F L 08/24/23 05:50 Pulse 76 08/24/23 05:50 Resp 22 08/24/23 05:50 BP 112/54 08/24/23 05:50 Pulse Ox 89 L 08/24/23 05:50 O2 Del Method Room Air 08/24/23 05:50 O2 Flow Rate 1 11/07/23 04:00 Documenting provider has reviewed patient's vital signs: yes Common normals: no apparent distress and oriented x3 General appearance: frail appearing Respiratory Common normals: normal respiratory effort and clear to auscultation bilaterally Cardio Common normals: regular rate Rate: regular rate Heart sounds: S1 normal and S2 normal Extremity Other: chronic skin changes, thickened/discolored skin with erythema b/l in LE Neuro Common normals: oriented x3, moves all extremities and no focal motor deficits Psych Common normals: mental status grossly normal Discharge Plan Discharge Disposition: er [facility] Discharge Medications: Continued albuterol sulfate 90 mcg/actuation HFA aerosol inhaler 1 inh INHALATION DAILY PRN (Reason: shortness of breath or wheezing) ammonium lactate 12 % cream 1 applic topical DAILY PRN (Reason: dry skin) bisacodyl 10 mg suppository 10 mg [place] DAILY PRN (Reason: constipation) digoxin 125 mcg (0.125 mg) tablet 0.125 mg PO DAILY furosemide 20 mg tablet 20 mg PO BID ferrous sulfate [Feosol] 325 mg (65 mg iron) tablet 325 mg PO DAILY guaifenesin 600 mg tablet extended release 12hr 600 mg PO BID PRN (Reason: cough) metolazone 5 mg tablet 5 mg PO DAILY metoprolol tartrate 50 mg tablet 50 mg PO BID omeprazole 20 mg capsule,delayed release(DR/EC) 20 mg PO BID tramadol 50 mg tablet 50 mg PO BID Discontinued allopurinol 300 mg tablet 300 mg PO DAILY Eliquis 5 mg tablet 5 mg PO BID calcium citrate 1,000 mg tablet 1,000 mg PO DAILY potassium gluconate 595 mg (99 mg) tablet 595 mg PO DAILY doxycycline hyclate 100 mg capsule 100 mg PO DAILY Forms: Portal Instructions Follow Up Appointments: Patient will sign up for hospice once he goes to long term.
--- NOTE | 2023-08-24 11:34 | CM.NOTE ---
Rounded with Dr. Holbrook this AM. Plan to discharge today back to [facility] and [facility] may sign on patient once returning to [facility] [place].
--- NOTE | 2023-08-24 12:14 | CM.NOTE ---
Plan with pt and family remains to go back to [facility] today with [facility] care. [facility] will transport pt at 2:00 today. [facility] called and updated on time.
== END 2023-08-24 14:07 | disposition hospice, home (50) | DRG 377 ==
LOC: ER 21:58 → MS 22:58 → ICU 08-18 05:52 → MS 08-22 16:39
PROVIDERS: Emergency Medicine; Family Medicine; Internal Medicine; Surgery; Admitting Provider Internal Medicine; Emergency Provider Internal Medicine; PCP Family Medicine; Visit Provider Internal Medicine
PROC: 0DJ08ZZ Inspection of Upper Intestinal Tract, Via Natural or Artificial Opening Endoscopic (ICD-10-PCS; principal; 2023-08-18 13:00)
PROC: 0DJ68ZZ Inspection of Stomach, Via Natural or Artificial Opening Endoscopic (ICD-10-PCS; principal; 2023-08-22 11:30)
DX: K92.2 Gastrointestinal hemorrhage, unspecified (principal); A41.9 Sepsis, unspecified organism; E43 Unspecified severe protein-calorie malnutrition; R57.1 Hypovolemic shock; J69.0 Pneumonitis due to inhalation of food and vomit; J96.01 Acute respiratory failure with hypoxia; R65.21 Severe sepsis with septic shock; I50.22 Chronic systolic (congestive) heart failure; I48.20 Chronic atrial fibrillation, unspecified; I48.92 Unspecified atrial flutter; L03.116 Cellulitis of left lower limb; L03.115 Cellulitis of right lower limb; I47.20 Ventricular tachycardia, unspecified; D62 Acute posthemorrhagic anemia; K59.00 Constipation, unspecified; Z95.0 Presence of cardiac pacemaker; Z79.01 Long term (current) use of anticoagulants; Z79.899 Other long term (current) drug therapy; R13.10 Dysphagia, unspecified; Z53.09 Procedure and treatment not carried out because of other contraindication; M95.4 Acquired deformity of chest and rib; K31.89 Other diseases of stomach and duodenum; I11.0 Hypertensive heart disease with heart failure; R00.1 Bradycardia, unspecified; F03.90 Unspecified dementia, unspecified severity, without behavioral disturbance, psychotic disturbance, mood disturbance, and anxiety; Z74.01 Bed confinement status; H91.90 Unspecified hearing loss, unspecified ear; Z66 Do not resuscitate; Z68.24 Body mass index [BMI] 24.0-24.9, adult; Z88.5 Allergy status to narcotic agent; Z88.7 Allergy status to serum and vaccine; Z88.6 Allergy status to analgesic agent; Z91.030 Bee allergy status; Z88.8 Allergy status to other drugs, medicaments and biological substances; Z51.5 Encounter for palliative care
CPT/HCPCS: 36415; 36430; 51702; 71045; 74177; 80053; 80162; 80202; 81001; 83735; 84134; 84484; 85014; 85018; 85025; 85027; 85610; 85730; 86850; 86900; 86901; 92610; 93005; 93306; 94761; 96361; 96365; 96366; 96367; 96368; 96375; 96376; 99285; G0328; G0378; J2704; J3370; J3480; P9016; P9047; Q3014; Q9967